=== PATIENT | female | born 1965 | race Caucasian/White ===

== ENCOUNTER 2016-07-09 12:48 | Emergency (ER) | payer OTHER ==
[2016-07-09 12:53] VITALS: BP 193/99; PULSE 118; TEMP 98.4; BMI 50.7
--- NOTE | 2016-07-09 13:26 | PDOC ---
History of Present Illness - General Chief Complaint: Abscess Boil Stated Complaint: LT LEG ABSCESS Time Seen by Provider: 07/09/16 12:55 History Source: Patient Exam Limitations: No Limitations - History of Present Illness Initial Comments: 07/09/16 13:18 CC chronic lower back for months; had recent surgery of this year for same ; unable to fill percocet meds, ran out due to over use; ; no new recent symptoms, just constant burn, no fever; seen by surgeon last week Past History - Past Medical History Allergies/Adverse Reactions: Allergies Allergy/AdvReac Type Severity Reaction Status Date / Time No Known Allergies Allergy Verified 07/09/16 12:53 Home Medications: Ambulatory Orders Simvastatin [Zocor -] 40 mg PO HS 08/26/12 Enalapril Maleate [Vasotec -] 20 mg PO DAILY 12/06/12 Acetaminophen [Tylenol .Regular Strength -] 650 mg PO Q6H PRN #0 tablet Docusate Sodium [Colace -] 200 mg PO HS #0 capsule 12/10/12 Insulin (Levemir) [Levemir Flexpen -] 25 units SQ BIDAC #0 pen 12/10/12 Metformin HCl [Glucophage -] 500 mg PO BIDAC #0 tablet 12/10/12 Nifedipine ER [Procardia XL -] 30 mg PO DAILY #0 tab.er.24 12/10/12 Oxycodone HCl/Acetaminophen [Percocet 5-325 mg Tablet] 1 combo PO Q6H PRN #0 tablet 12/10/12 Sitagliptin Phosphate [Januvia -] 100 mg PO DAILY@0700 #0 ud 12/10/12 Cephalexin Monohydrate [Keflex -] 500 mg PO Q6H #28 capsule 03/28/13 Clindamycin [Cleocin -] 300 mg PO Q6HPO #28 capsule 03/01/14 Chlorhexidine Gluconate [Hibiclens For Decolonization -] 1 applic TP DAILY #1 bottle 04/02/15 Diabetes: Yes HTN: Yes Hypercholesterolemia: Yes - Psycho/Social/Smoking Cessation Hx Anxiety: No Suicidal Ideation: No Smoking Status: No Smoking History: Never smoked Have you smoked in the past 12 months: No Number of Cigarettes Smoked Daily: 0 Hx Alcohol Use: No Drug/Substance Use Hx: No Substance Use Type: None Hx Substance Use Treatment: No Review of Systems - Review of Systems Constitutional: No: Chills, Fever, Malaise HEENTM: Yes: Symptoms Reported Respiratory: No: Cough Cardiac (ROS): No: Symptoms Reported ABD/GI: Yes: Nausea. No: Constipated, Vomiting : No: Symptoms Reported, Burning, Dysuria Musculoskeletal: Yes: Back Pain, Muscle Pain Integumentary: No: Symptoms Reported Neurological: No: Numbness, Paresthesia, Tingling Hematologic/Lymphatic: No: Symptoms Reported *Physical Exam - Vital Signs Last Vital Signs Temp Pulse Resp BP Pulse Ox 98.4 F 118 H 20 193/99 97 07/09/16 12:49 07/09/16 12:49 07/09/16 12:49 07/09/16 12:49 07/09/16 12:49 - Physical Exam General Appearance: Yes: Appropriately Dressed HEENT: positive: Pharynx Normal. negative: TMs Normal Neck: positive: Supple. negative: Tender, Rigid Respiratory/Chest: positive: Lungs Clear. negative: Chest Tender, Respiratory Distress, Accessory Muscle Use Gastrointestinal/Abdominal: positive: Tender, Soft. negative: Flat Integumentary: positive: Normal Color, Dry, Warm, Other (surgical suture line healing well, no sutures now) Medical Decision Making - Medical Decision Making 07/09/16 13:22 had case management see pt, please see her note; gave percocet x 2 doses in ED also gave xanax for anxiety; pt has seen Dr roman pain management in past; piano case maker will call pt on monday to review status and possible alternatives care plans; will treat with tramadol and short course xanax at home; and follow up with LMD monday at [facility] 07/09/16 13:26 *DC/Admit/Observation/Transfer Diagnosis at time of Disposition: Chronic back pain Qualifiers: Back pain location: low back pain Back pain laterality: unspecified Sciatica presence: with sciatica Sciatica laterality: bilateral sciatica Qualified Code(s ): M54.41 - Lumbago with sciatica, right side; M54.42 - Lumbago with sciatica, left side; G89.29 - Other chronic pain - Discharge Dispostion Disposition: HOME Condition at time of disposition: Stable Admit: No - Referrals Referrals: Anjelica Ramirez [Primary Care Provider] - - Patient Instructions Additional Instructions: please follow up with local MD at [facility] on monday as discussed; - Post Discharge Activity
[2016-07-09] MEDS ORDERED: INSULIN REGULAR HUMAN 100 UNITS/ML *VIAL SQ ONE (14:23)
--- NOTE | 2016-07-09 14:36 | PDOC ---
History of Present Illness - General Chief Complaint: Abscess Boil Stated Complaint: LT LEG ABSCESS Time Seen by Provider: 07/09/16 12:55 History Source: Patient Exam Limitations: No Limitations - History of Present Illness Initial Comments: 07/09/16 14:31 CC abscess to left posterior thigh Timing/Duration: 1 week Severity: mild Associated Symptoms: denies: chest pain, cough, fever/chills Past History - Past Medical History Allergies/Adverse Reactions: Allergies Allergy/AdvReac Type Severity Reaction Status Date / Time No Known Allergies Allergy Verified 07/09/16 12:53 Home Medications: Ambulatory Orders Simvastatin [Zocor -] 40 mg PO HS 08/26/12 Enalapril Maleate [Vasotec -] 20 mg PO DAILY 12/06/12 Acetaminophen [Tylenol .Regular Strength -] 650 mg PO Q6H PRN #0 tablet Insulin (Levemir) [Levemir Flexpen -] 25 units SQ BIDAC #0 pen 12/10/12 Metformin HCl [Glucophage -] 500 mg PO BIDAC #0 tablet 12/10/12 Nifedipine ER [Procardia XL -] 30 mg PO DAILY #0 tab.er.24 12/10/12 Oxycodone HCl/Acetaminophen [Percocet 5-325 mg Tablet] 1 combo PO Q6H PRN #0 tablet 12/10/12 Chlorhexidine Gluconate [Hibiclens For Decolonization -] 1 applic TP DAILY #1 bottle 04/02/15 Sulfamethoxazole/Trimethoprim [Bactrim Ds -] 1 tab PO DAILY 07/09/16 Diabetes: Yes HTN: Yes Hypercholesterolemia: Yes - Psycho/Social/Smoking Cessation Hx Anxiety: No Suicidal Ideation: No Smoking Status: No Smoking History: Never smoked Have you smoked in the past 12 months: No Number of Cigarettes Smoked Daily: 0 Hx Alcohol Use: No Drug/Substance Use Hx: No Substance Use Type: None Hx Substance Use Treatment: No Review of Systems - Review of Systems Constitutional: Yes: Symptoms Reported. No: Chills, Fever, Malaise HEENTM: No: Symptoms Reported Respiratory: No: Symptoms reported, Cough Cardiac (ROS): No: Symptoms Reported Integumentary: Yes: Other (10 cm erythemic area with fluct, center area) *Physical Exam - Vital Signs Last Vital Signs Temp Pulse Resp BP Pulse Ox 98.4 F 118 H 20 193/99 97 07/09/16 12:49 07/09/16 12:49 07/09/16 12:49 07/09/16 12:49 07/09/16 12:49 - Physical Exam General Appearance: Yes: Appropriately Dressed. No: Apparent Distress HEENT: positive: TMs Normal, Pharynx Normal Respiratory/Chest: positive: Lungs Clear. negative: Accessory Muscle Use Integumentary: positive: Other (left upper posterior thigh 10 cm erythemica area with fluct center) Procedures - Incision and Drainage I&D Site: Left: Leg Betadine cleansed: Yes Anesthesia: 1% Lidocaine Volume(ml): 5 Blade Size: 11 Iodinated Packin/4 in Plain Packing: Yes Complications: none Dressing: Yes Medical Decision Making - Medical Decision Making 07/09/16 14:35 GFSG= [id number]; I&D of abscess left thigh; has been on bactrim x 5 days ; wc in 2 days *DC/Admit/Observation/Transfer Diagnosis at time of Disposition: Abscess of lower extremity Chronic back pain Qualifiers: Back pain location: low back pain Back pain laterality: unspecified Sciatica presence: with sciatica Sciatica laterality: bilateral sciatica Qualified Code(s ): M54.41 - Lumbago with sciatica, right side; M54.42 - Lumbago with sciatica, left side; G89.29 - Other chronic pain Hyperglycemia due to type 2 diabetes mellitus Qualifiers: Diabetes mellitus retirement insulin use: unspecified retirement insulin use status Qualified Code(s): E11.65 - Type 2 diabetes mellitus with hyperglycemia - Discharge Dispostion Disposition: HOME Condition at time of disposition: Stable Admit: No - Referrals Referrals: Anjelica Ramirez [Primary Care Provider] - - Patient Instructions Additional Instructions: please return to ED in 2 days for packing removal; please follow sugar at home - Post Discharge Activity
[2016-07-09] MEDS ORDERED: INSULIN (NOVOLOG) ASPART 100 UNITS/ML 10ML VIAL SQ ONE (14:43)
[2016-07-09] MEDS ORDERED: INSULIN (NOVOLOG) ASPART 100 UNITS/ML 10ML VIAL ONE (14:48)
== END 2016-07-09 15:35 | disposition home or self-care (01) ==
LOC: JERFT 12:48
PROC: 3E013VG Introduction of Insulin into Subcutaneous Tissue, Percutaneous Approach (ICD-10-PCS; principal; 2016-07-09)
PROC: 3E013VG Introduction of Insulin into Subcutaneous Tissue, Percutaneous Approach (ICD-10-PCS; 2016-07-09)
PROC: 0J9M3ZZ Drainage of Left Upper Leg Subcutaneous Tissue and Fascia, Percutaneous Approach (ICD-10-PCS; 2016-07-09)
DX: L02.416 Cutaneous abscess of left lower limb (principal); M54.41 Lumbago with sciatica, right side; M54.42 Lumbago with sciatica, left side; E11.65 Type 2 diabetes mellitus with hyperglycemia; Z79.4 Long term (current) use of insulin; Z79.84 Long term (current) use of oral hypoglycemic drugs; I10 Essential (primary) hypertension; E78.00 Pure hypercholesterolemia, unspecified
CPT/HCPCS: 87070; 87186; 87205; 99281-25

== ENCOUNTER 2016-07-11 10:19 | Emergency (ER) | payer OTHER ==
[2016-07-11 10:37] VITALS: BP 170/80; PULSE 102; TEMP 97.9; BMI 51.6
--- NOTE | 2016-07-11 13:19 | PDOC ---
*Physical Exam - Vital Signs Last Vital Signs Temp Pulse Resp BP Pulse Ox 97.9 F 102 H 19 170/80 98 07/11/16 10:31 07/11/16 10:31 07/11/16 10:31 07/11/16 10:31 07/11/16 10:31 - Physical Exam Neck: negative: Rigid Respiratory/Chest: positive: Lungs Clear Integumentary: positive: Other (no drainage still somewhat indurated; redness gone now) Medical Decision Making - Medical Decision Making 07/11/16 13:[address] Crow *DC/Admit/Observation/Transfer Diagnosis at time of Disposition: Admission for wound check of abscess - Discharge Dispostion Disposition: HOME Condition at time of disposition: Stable Admit: No - Referrals Referrals: Anjelica Ramirez [Primary Care Provider] - Tray Crow MD [Staff Physician] - - Patient Instructions Additional Instructions: see dr crow 1 week for wound evaluation; finish abx - Post Discharge Activity Work/School Note: Back to Work
== END 2016-07-11 13:52 | disposition home or self-care (01) ==
LOC: JERFT 10:19
DX: Z09 Encounter for follow-up examination after completed treatment for conditions other than malignant neoplasm (principal)
CPT/HCPCS: 99281-25

== ENCOUNTER 2017-01-14 12:53 | Inpatient (IN) | payer OTHER ==
--- NOTE | 2017-01-14 13:37 | PDOC ---
*Physical Exam - Vital Signs Last Vital Signs Temp Pulse Resp BP Pulse Ox 97.8 F 109 H 19 166/81 97 01/14/17 13:01 01/14/17 13:01 01/14/17 13:01 01/14/17 13:01 01/14/17 13:01
[2017-01-14 13:52] LABS: BASOPHIL 1.2 % (0-2.0); EOSINOPHIL 7.4 % (0-4.5); MCH 28.3 pg (25.7-33.7); MCHC 32.4 g/dl (32.0-36.0); MEAN CELL VOLUME 87.2 fl (80-96); MEAN PLT VOLUME 7.2 fl (7.5-11.1); NEUTROPHILS 68.2 % (42.8-82.8); PLATELET COUNT 432 K/MM3 (134-434); RDW 14.1 % (11.6-15.6); WHITE BLOOD COUNT 9.9 K/mm3 (4.0-10.0)
--- NOTE | 2017-01-14 13:57 | PDOC ---
History of Present Illness - General History Source: Patient - History of Present Illness Timing/Duration: other Associated Symptoms: reports: weakness <Bella NickAngelique - Last Filed: 01/14/17 15:22> <Nelly Harperan - Last Filed: 01/14/17 15:41> - General Chief Complaint: Weakness Stated Complaint: LEG WEAKNESS Time Seen by Provider: 01/14/17 13:09 Past History - Past Medical History Diabetes: Yes HTN: Yes Hypercholesterolemia: Yes - Psycho/Social/Smoking Cessation Hx Anxiety: No Suicidal Ideation: No Smoking Status: No Smoking History: Never smoked Have you smoked in the past 12 months: No Number of Cigarettes Smoked Daily: 0 Hx Alcohol Use: No Drug/Substance Use Hx: No Substance Use Type: None Hx Substance Use Treatment: No <LatvianJudith - Last Filed: 01/14/17 15:22> <LeroyHector - Last Filed: 01/14/17 15:41> - Past Medical History Allergies/Adverse Reactions: Allergies Allergy/AdvReac Type Severity Reaction Status Date / Time No Known Allergies Allergy Verified 01/14/17 13:01 Home Medications: Ambulatory Orders Simvastatin [Zocor -] 40 mg PO HS 08/26/12 Enalapril Maleate [Vasotec -] 20 mg PO DAILY 12/06/12 Acetaminophen [Tylenol .Regular Strength -] 650 mg PO Q6H PRN #0 tablet Insulin (Levemir) [Levemir Flexpen -] 25 units SQ BIDAC #0 pen 12/10/12 Metformin HCl [Glucophage -] 500 mg PO BIDAC #0 tablet 12/10/12 Nifedipine ER [Procardia XL -] 30 mg PO DAILY #0 tab.er.24 12/10/12 Oxycodone HCl/Acetaminophen [Percocet 5-325 mg Tablet] 1 combo PO Q6H PRN #0 tablet 12/10/12 Chlorhexidine Gluconate [Hibiclens For Decolonization -] 1 applic TP DAILY #1 bottle 04/02/15 Sulfamethoxazole/Trimethoprim [Bactrim Ds -] 1 tab PO DAILY 07/09/16 Review of Systems - Review of Systems Constitutional: No: Chills, Fever Respiratory: No: Shortness of Breath Cardiac (ROS): No: Chest Pain ABD/GI: No: Nausea, Vomiting Musculoskeletal: Yes: Muscle Weakness. No: Back Pain, Joint Swelling, Neck Pain Neurological: Yes: Weakness. No: Numbness, Tingling <Bella NickAngelique - Last Filed: 01/14/17 15:22> *Physical Exam - Vital Signs Last Vital Signs Temp Pulse Resp BP Pulse Ox 97.8 F 109 H 19 166/81 97 01/14/17 13:01 01/14/17 13:01 01/14/17 13:01 01/14/17 13:01 01/14/17 13:01 - Physical Exam General Appearance: Yes: Appropriately Dressed. No: Apparent Distress HEENT: positive: Normal Voice Neck: positive: Supple Respiratory/Chest: negative: Respiratory Distress Female Pelvic Exam: positive: other (well appearing abscess to L groin, no e/o reaccumulation or erythema) Gastrointestinal/Abdominal: positive: Soft. negative: Tender Musculoskeletal: positive: Normal Inspection Extremity: positive: Normal Inspection Integumentary: positive: Dry, Warm. negative: Rash Neurologic: positive: Fully Oriented, Alert, Normal Mood/Affect, Motor Strength 5/5 <LatvianJudith - Last Filed: 01/14/17 15:22> - Vital Signs Last Vital Signs Temp Pulse Resp BP Pulse Ox 97.8 F 100 H 18 172/78 98 01/14/17 13:01 01/14/17 15:25 01/14/17 15:25 01/14/17 15:25 01/14/17 15:25 <Hector Harper - Last Filed: 01/14/17 15:41> Heart Score/ECG Review - ECG Intrepretation Comment:: 01/14/17 15:20 Sinus tachy to 102 BPM w/ significantly peaked Ts <LatvianJudith - Last Filed: 01/14/17 15:22> ED Treatment Course - LABORATORY CBC & Chemistry Diagram: 01/14/17 13:45 01/14/17 13:45 <LatvianJudith - Last Filed: 01/14/17 15:22> - LABORATORY CBC & Chemistry Diagram: 01/14/17 13:45 01/14/17 13:45 - ADDITIONAL ORDERS Additional order review: Laboratory Results 01/14/17 01/14/17 01/14/17 14:20 13:45 13:45 Sodium 130 L Potassium 8.2 H* D Chloride 105 Carbon Dioxide 22 Anion Gap 3 L BUN 46 H D Creatinine 1.6 H D Creat Clearance w eGFR 33.85 Random Glucose 285 H Calcium 9.1 Total Bilirubin < 0.1 L D AST 14 L D ALT 28 D Alkaline Phosphatase 97 B-Natriuretic Peptide 25.79 Total Protein 8.1 Albumin 3.5 Urine Color Straw Urine Appearance Slcloudy Urine pH 5.0 Urine Protein 2+ H Urine Glucose (UA) 3+ H Urine Ketones Negative Urine Blood 1+ H Urine Nitrite Negative Urine Bilirubin Negative Urine Urobilinogen Negative Ur Leukocyte Esterase Negative 01/14/17 13:45 RBC 4.05 MCV 87.2 MCHC 32.4 RDW 14.1 MPV 7.2 L Neutrophils % 68.2 Lymphocytes % 17.1 Monocytes % 6.1 Eosinophils % 7.4 H D Basophils % 1.2 - Medications Given in the ED: ED Medications Discontinued Medications Generic Name Dose Route Start Last Admin Trade Name Alma Rosa PRN Reason Stop Dose Admin Albuterol Sulfate 1 amp 01/14/17 14:57 01/14/17 15:34 Ventolin 0.083% Nebulizer Soln - NEB 01/14/17 14:58 1 amp ONCE ONE Administration Dextrose 50 gm 01/14/17 14:56 01/14/17 15:34 D50w (Vial) - IVPUSH 01/14/17 14:57 50 gm NOW ONE Administration Insulin Human Regular 10 units 01/14/17 14:54 01/14/17 15:34 Novolin R Vial *For Ivpush Or Iv Drip Only* IVPUSH 01/14/17 14:55 10 units ONCE ONE Administration Sodium Polystyrene Sulfonate 30 gm 01/14/17 14:52 01/14/17 15:34 Kayexalate - PO 01/14/17 14:53 30 gm ONCE ONE Administration <Hector Harper - Last Filed: 01/14/17 15:41> Medical Decision Making - Medical Decision Making 01/14/17 13:51 51-year-old morbidly obese, hypertension, hyperlipidemia, diabetes, recently completed bactrim for groin abscess (improving per pt), presenting with complaint of bilateral lower extremity weakness. Patient states for the past several weeks she has been experiencing bilateral lower extremity weakness usually after sitting for too long. At that point, pt states she then has a difficult time getting up and walking. States at some point, weakness usually resolves. This a.m. while sitting at [employer], symptoms got worse and states she was not even able to stand up and walk to put her tray back on counter initially but at some point, was able to ambulate. Patient does have a history of sciatica, but denies any back pain at this time. No saddle anesthesia or bladder or bladder incontinence. When patient asked if she has seen her primary doctor regarding symptoms, pt responds that she has not been able to as she is unable to afford the co-pay. At this point, patient starts to cry and states "My life is falling apart". Denies any SI. See exam Intermittent b/l LE weakness of unclear etiology x weeks Stable w intact LE strength b/l and ambulating in ED No acute back pain to suggest cauda equina -will check basic labs r/o electrolyte ab/nl -anticipate discharge w/ PMD f/u for further eval -possible neuro referral 01/14/17 13:59 01/14/17 14:50 01/14/17 15:02 Cr 1.6 (new for pt) w/ K of 8.2! (ran multiple times and not hemolyzed per lab staff) EKG w/ significantly peaked Ts. HyperK cocktail in progress. Will contact Dr Ramirez and admit 01/14/17 15:04 01/14/17 15:09 Case d/w pt's PMD, Dr Ramirez, who states to admit to hospitalist 01/14/17 15:12 01/14/17 15:19 Hospitalist aware and wants pt to go to inpt tele. Recommends drawing trops 01/14/17 15:22 <Judith Nick - Last Filed: 01/14/17 15:22> *DC/Admit/Observation/Transfer - Discharge Dispostion Admit: Yes <Judith Nick Filed: 01/14/17 15:22> - Attestations Physician Attestion: 01/14/17 15:39 I, Dr. Hector Harper MD, attest that this document has been prepared under my direction and personally reviewed by me in its entirety. I further attest, that it accurately reflects all work, treatment, procedures and medical decision -making performed by me. <Hector Harper - Last Filed: 01/14/17 15:41> Diagnosis at time of Disposition: MACY (acute kidney injury), Hyperkalemia - Discharge Dispostion Condition at time of disposition: Fair - Referrals
[2017-01-14 14:31] LABS: ALBUMIN 3.5 g/dl (3.4-5.0); ALK PHOS 97 U/L (45-117); ANION GAP 3 (8-16); CALCIUM 9.1 mg/dL (8.5-10.1); CO2 22 mmol/L (21-32); CREATININE 1.6 mg/dL (0.55-1.02); GLUCOSE,RANDOM 285 mg/dL (74-106); SGOT/AST 14 U/L (15-37); SGPT/ALT 28 U/L (12-78); TOT PROT 8.1 g/dl (6.4-8.2)
--- NOTE | 2017-01-14 14:31 | PDOC ---
*Physical Exam - Vital Signs Last Vital Signs Temp Pulse Resp BP Pulse Ox 97.8 F 109 H 19 166/81 97 01/14/17 13:01 01/14/17 13:01 01/14/17 13:01 01/14/17 13:01 01/14/17 13:01 - Physical Exam General Appearance: Yes: Nourished, Appropriately Dressed HEENT: positive: EOMI, ELI Respiratory/Chest: positive: Lungs Clear, Normal Breath Sounds. negative: Respiratory Distress Cardiovascular: positive: Regular Rhythm, Regular Rate Vascular Pulses: Dorsalis-Pedis (R): 2+, Doralis-Pedis (L): 2+ Gastrointestinal/Abdominal: positive: Normal Bowel Sounds, Soft. negative: Tender Extremity: positive: Normal Capillary Refill Integumentary: positive: Normal Color Neurologic: positive: data miner II-XII NML intact, Motor Strength 5/5 ED Treatment Course - LABORATORY CBC & Chemistry Diagram: 01/14/17 13:45 01/14/17 13:45 - ADDITIONAL ORDERS Additional order review: 01/14/17 13:45 RBC 4.05 MCV 87.2 MCHC 32.4 RDW 14.1 MPV 7.2 L Neutrophils % 68.2 Lymphocytes % 17.1 Monocytes % 6.1 Eosinophils % 7.4 H D Basophils % 1.2 Medical Decision Making - Medical Decision Making Agree with PA's evaluation, assessment, and plan. 01/14/17 15:08 51 F morbidly obese, DM, HTN, HLD presents with BLE weakness for several weeks, acutely worsening today. Pt found to be in new renal failure with K 8.2 and bump in Cr to 1.6. No focal neuro deficits on exam to suggest intracranial process, pt able to ambulate without assistance. Weakness likely 2/2 metabolic derangement. - IVF, Hyper-K cocktail - EKG - Admit for fluid resuscitation and further work up of new renal insufficiency *DC/Admit/Observation/Transfer Diagnosis at time of Disposition: MACY (acute kidney injury), Hyperkalemia - Referrals Referrals: Anjelica Ramirez [Primary Care Provider] - - Attestations Physician Attestion: 01/14/17 15:12 I, Dr. Hector Harper MD, attest that this document has been prepared under my direction and personally reviewed by me in its entirety. I further attest, that it accurately reflects all work, treatment, procedures and medical decision -making performed by me.
[2017-01-14 14:41] LABS: URINE APPEARANCE SLCLOUDY; URINE BILIRUBIN NEGATIVE (NEGATIVE); URINE BLOOD 1+ (NEGATIVE); URINE COLOR STRAW; URINE GLUCOSE (UA) 3+ (NEGATIVE); URINE KETONE NEGATIVE (NEGATIVE); URINE LEUK ESTERASE NEGATIVE (NEGATIVE); URINE NITRITE NEGATIVE (NEGATIVE); URINE UROBILINOGEN NEGATIVE mg/dL (0.2-1.0)
[2017-01-14 14:49] LABS: BILIRUBIN,TOTAL < 0.1 mg/dL (0.2-1.0)
[2017-01-14 14:51] LABS: URINE PROTEIN 2+ (NEGATIVE)
[2017-01-14] MEDS ORDERED: SODIUM POLYSTYRENE SULFONATE 15 GM/60 ML BOTTLE PO ONE ×2 (14:52→23:57)
[2017-01-14] MEDS ORDERED: CALCIUM GLUCONATE 10% - 1,000 MG/10 ML VIAL IVPUSH ONE (14:53)
[2017-01-14] MEDS ORDERED: INSULIN REGULAR HUMAN 100 UNITS/ML *VIAL IVPUSH ONE ×2 (14:54→18:55)
[2017-01-14] MEDS ORDERED: DEXTROSE 50%-WATER - 25 GM/50 ML VIAL IVPUSH ONE ×2 (14:56→18:55)
[2017-01-14] MEDS ORDERED: ALBUTEROL SO4 0.083% IH SOL 2.5 MG/3 ML VIAL.NEB. NEB ONE ×4 (14:57→19:12)
[2017-01-14] MEDS ORDERED: SODIUM CHLORIDE 1,000 ML IV STA ×2 (15:01→16:45)
[2017-01-14] MEDS ORDERED: INSULIN REGULAR HUMAN 100 UNITS/ML *VIAL ONE ×2 (15:12→19:12)
[2017-01-14] MEDS ORDERED: SODIUM POLYSTYRENE SULFONATE 15 GM/60 ML BOTTLE ONE (15:12)
[2017-01-14] MEDS ORDERED: DEXTROSE 50%-WATER 50 ML DISP.SYRIN ONE ×2 (15:12→19:12)
[2017-01-14] MEDS ORDERED: CALCIUM GLUCONATE 10% - 1,000 MG/10 ML VIAL ONE (15:48)
--- NOTE | 2017-01-14 16:08 | HP ---
Admitting History and Physical - Primary Care Physician PCP: Anjelica Ramirez - Admission Chief Complaint: lower extremity weakness History of Present Illness: HPI: This is a 52 year old female with pmhx of DM II, HTN, HLD presented to the ED with worsening lower extremity weakness. For the past week she reports lower extremity weakness by which she felt her legs giving out under her and weak upon standing, only with ambulation would the weakness dissipate and she would feel strong. Today while at breakfast at [employer], when she went to stand she was so weak she needed to use her mothers cane. The weakness improved with walking once again, but her mother insisted she go to the hospital. While in the ED she was found to be hyperkalemic with EKG changes (peaked T waves). Pt states shes been on bactrim for a boil in her left labia majora that opened and started draining on its on own. Her mother has been keeping the wound clean and dressed since. ED course: 1. Hyperkalemic cocktail 2. Kayexalate 30mg x1 3. EKG peaked T waves 4. 1L bolus x1 History Source: Patient Limitations to Obtaining History: No Limitations - Past Medical History Cardiovascular: Yes: HTN, Hyperlipdemia ...LMP: 12/01/12 ENT: Yes: Other (L eye retinal detachment) Endocrine: Yes: Diabetes Mellitus - Past Surgical History Additional Past Surgical History: ovarian cyst removal "years ago" Lanced skin boils/abscess - Smoking History Smoking history: Never smoked Have you smoked in the past 12 months: No Aproximately how many cigarettes per day: 0 - Alcohol/Substance Use Hx Alcohol Use: No History of Substance Use: reports: None - Social History Usual Living Arrangement: Yes: With Parent ADL: Independent 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 History of Recent Travel: No Home Medications - Allergies Allergies/Adverse Reactions: Allergies Allergy/AdvReac Type Severity Reaction Status Date / Time No Known Allergies Allergy Verified 01/14/17 13:01 - Home Medications Home Medications: Ambulatory Orders Simvastatin [Zocor -] 40 mg PO HS 08/26/12 Enalapril Maleate [Vasotec -] 20 mg PO DAILY 12/06/12 Acetaminophen [Tylenol .Regular Strength -] 650 mg PO Q6H PRN #0 tablet 07/01/ 13 Hydrochlorothiazide [Hctz -] 12.5 mg PO DAILY 01/14/17 Insulin NPH Human Isophane [Humulin N] 30 unit SQ AM 01/14/17 Insulin NPH Human Isophane [Humulin N] 30 unit SQ HS 01/14/17 Metformin HCl [Glucophage -] 1,000 mg PO BIDAC 01/14/17 Review of Systems - Review of Systems Constitutional: reports: Weakness Eyes: reports: No Symptoms HENT: reports: No Symptoms Neck: reports: No Symptoms Cardiovascular: reports: No Symptoms Respiratory: reports: No Symptoms Gastrointestinal: reports: No Symptoms Musculoskeletal: reports: Muscle Weakness Integumentary: reports: Wound (labia majora) Neurological: reports: Unsteady Gait Endocrine: reports: No Symptoms Hematology/Lymphatic: reports: No Symptoms Psychiatric: reports: No Symptoms Physical Examination Vital Signs: Vital Signs Temperature 97.8 F 01/14/17 13:01 Pulse Rate 100 H 01/14/17 15:25 Respiratory Rate 18 01/14/17 15:25 Blood Pressure 172/78 01/14/17 15:25 O2 Sat by Pulse Oximetry (%) 98 01/14/17 15:25 Constitutional: Yes: Anxious Eyes: Yes: Conjunctiva Clear HENT: Yes: Other (poor dentition) Cardiovascular: Yes: Regular Rate and Rhythm, S1 Respiratory: Yes: Regular, CTA Bilaterally Gastrointestinal: Yes: Normal Bowel Sounds, Soft Renal/: Yes: Other (Left labia majora open wound, clean, non draining, pink) Musculoskeletal: Yes: Muscle Weakness Edema: Yes Edema: LLE: 2+, RLE: 2+ Integumentary: Yes: Other (R toe healing wound, wound closed) Wound/Incision: Yes: Open to air (vagina) Neurological: Yes: Alert, Oriented, Cran Nerves II-XII Intact Psychiatric: Yes: Alert, Oriented Labs: CBC, BMP 01/14/17 13:45 01/14/17 13:45 Imaging - Results EKG: Report Reviewed, Image Reviewed (Peaked T waves) Problem List - Problems (1) MACY (acute kidney injury) Code(s): N17.9 - ACUTE KIDNEY FAILURE, UNSPECIFIED (2) Hyperkalemia Code(s): E87.5 - HYPERKALEMIA (3) Hyperglycemia due to type 2 diabetes mellitus Code(s): E11.65 - TYPE 2 DIABETES MELLITUS WITH HYPERGLYCEMIA Qualifiers: Diabetes mellitus 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 Hyperkalemia - Cocktail in ED - Repeat BMP in 2 hours (1700) - Repeat cocktail in 4hr if K not improved - Monitor on telemetry , EKG in AM - Continue IVF - Stop HCTZ - Stop Bactrim 2. Hyponatremia - Corrected sodium 133 - Likely due to HCTZ 3. Eosinophilia - Stop bactrim - Collect urine eosinophilia 4. HTN - Hold CARRIE - Stop HCTZ - Start Hydralazine 10mg TID 5. MACY/new onset ARF - 1L NS given - Give additional 1L bolus - Continue NS 83cc/hr after - Kidney/bladder US - Check CXR - Insert will - Urine studies - UA - Renal consulted 5. HLD - Hold statin for now - Check lipid panel 6. DM II - Levemir 30units BID - ISS, BGM ACHS - Check a1c 7. DVT ppx - heparin 5000sq q8 Visit type - Emergency Visit Emergency Visit: Yes ED Registration Date: 01/14/17 Care time: The patient presented to the Emergency Department on the above date and was hospitalized for further evaluation of their emergent condition. - New Patient This patient is new to me today: Yes Date on this admission: 01/14/17 - Critical Care Critical Care patient: No
[2017-01-14 16:16] LABS: TROPONIN I 0.02 ng/ml (0.00-0.05)
[2017-01-14] MEDS ORDERED: LORazepam 0.5 MG TABLET PO PRN (16:52)
[2017-01-14] MEDS: hydrALAZINE HCL 10 MG TABLET PO SCH ×2 (17:53→22:33)
[2017-01-14 18:13] LABS: ANION GAP 6 (8-16); CALCIUM 9.4 mg/dL (8.5-10.1); CO2 23 mmol/L (21-32); CREATININE 1.6 mg/dL (0.55-1.02); GLUCOSE,RANDOM 241 mg/dL (74-106)
[2017-01-14] MEDS ORDERED: SODIUM CHLORIDE 1,000 ML IV SCH (18:45)
[2017-01-14] MEDS ORDERED: INSULIN (NOVOLOG) ASPART 100 UNITS/ML 10ML VIAL ONE (22:18)
[2017-01-14] MEDS: HEPARIN NA (PORCINE) 5,000 UNITS/ML 1ML VIAL SQ SCH (22:33)
[2017-01-14] MEDS: INSULIN SLIDING SCALE (NOVOLOG) 1 VIAL SQ SCH (22:33)
[2017-01-14 22:58] LABS: ANION GAP 9 (8-16); CALCIUM 8.3 mg/dL (8.5-10.1); CO2 20 mmol/L (21-32); CREATININE 1.5 mg/dL (0.55-1.02); GLUCOSE,RANDOM 268 mg/dL (74-106)
[2017-01-15 01:02] VITALS: BMI 51.7
[2017-01-15 04:17] LABS: ANION GAP 6 (8-16); CALCIUM 8.1 mg/dL (8.5-10.1); CO2 21 mmol/L (21-32); CREATININE 1.7 mg/dL (0.55-1.02); GLUCOSE,RANDOM 293 mg/dL (74-106)
[2017-01-15] MEDS ORDERED: DEXTROSE 50%-WATER - 25 GM/50 ML VIAL IVPUSH ONE ×3 (04:34→19:38)
[2017-01-15] MEDS ORDERED: INSULIN REGULAR HUMAN 100 UNITS/ML *VIAL IVPUSH ONE ×2 (04:35→19:38)
[2017-01-15] MEDS ORDERED: ALBUTEROL SO4 0.083% IH SOL 2.5 MG/3 ML VIAL.NEB. NEB ONE (04:36)
[2017-01-15] MEDS ORDERED: CALCIUM GLUCONATE 10% - 1,000 MG/10 ML VIAL IVPUSH ONE ×2 (05:09→19:40)
[2017-01-15] MEDS ORDERED: DEXTROSE 50%-WATER - 25 GM/50 ML VIAL ONE (05:27)
--- NOTE | 2017-01-15 05:31 | HOSP ---
Subjective - Review of Symptoms Events since last encounter: Hospitalist Encounter Notified by RN of the critical lab value K 6.7 after receiving D-50 x2, Novolog 10 units x2, Calcium Gluconate 1000mg x1, Kayexelate 30gm x2 yesterday afternoon and evening. Ordered stat EKG, Hyperkalemic Protocol Arrived to bedside, patient is awake, alert and oriented, denies CP, SOB. EKG reviewed- peaked T waves noted in pericordial leads Will repeat BMP in 2 hrs. Physical Examination Vital Signs: Vital Signs Temperature 98.4 F 01/15/17 02:00 Pulse Rate 99 H 01/15/17 02:00 Respiratory Rate 16 01/15/17 02:00 Blood Pressure 131/69 01/15/17 02:00 O2 Sat by Pulse Oximetry (%) 100 01/14/17 21:00 Constitutional: Yes: Well Nourished, Anxious, Obese Cardiovascular: Yes: WNL, Regular Rate and Rhythm, S1, S2 Respiratory: Yes: WNL, Regular, CTA Bilaterally ...Motor Strength: WNL Psychiatric: Yes: WNL, Alert, Oriented Labs: CBC, BMP 01/15/17 02:40 Current Medications Generic Name Dose Route Start Last Admin Trade Name Freq PRN Reason Stop Dose Admin Acetaminophen 650 mg 01/14/17 16:52 Tylenol - PO Q6H PRN FEVER OR PAIN Heparin Sodium (Porcine) 5,000 unit 01/14/17 22:00 01/14/17 22:33 Heparin - SQ 5,000 unit TID ELISEO Administration Hydralazine HCl 10 mg 01/14/17 17:00 01/14/17 22:33 Apresoline - PO 10 mg TID ELISEO Administration Sodium Chloride 1,000 mls @ 83 mls/hr 01/14/17 18:45 01/14/17 19:53 Normal Saline - IV 83 mls/hr ASDIR ELISEO Administration Insulin Aspart 1 vial 01/14/17 22:00 01/14/17 22:33 Novolog Vial Sliding Scale - SQ 6 units ACHS ELISEO Administration Protocol Lorazepam 0.5 mg 01/14/17 16:52 Ativan - PO BID PRN ANXIETY Intake & Output 01/12/17 01/13/17 01/14/17 01/15/17 23:59 23:59 23:59 23:59 Output Total 400 Balance -400 Weight 145.331 kg
[2017-01-15] MEDS: HEPARIN NA (PORCINE) 5,000 UNITS/ML 1ML VIAL SQ SCH ×3 (06:48→21:55)
[2017-01-15] MEDS: INSULIN SLIDING SCALE (NOVOLOG) 1 VIAL SQ SCH ×4 (06:49→21:55)
[2017-01-15] MEDS: hydrALAZINE HCL 10 MG TABLET PO SCH ×3 (06:49→21:55)
--- NOTE | 2017-01-15 08:05 | CON.NEP ---
Consult Consult Specialty:: Nephrology ([facility]) Referred by:: CYNDY Coelho Reason for Consultation:: Hyperkalemia/MACY - History of Present Illness Chief Complaint: Lower Ext weakness History of Present Illness: This is a 51 year old woman with PMhx of DM Type 2 (x 20 years), Hypertension, Obesity who presented with complaints of Lower extremity weakness x 2 days and found to have hyperkaemia with K of 8.2 and BUN/Cr of 46/1.6. Pt reports being on Bactrim for 2 weeks for boil. Reports poor oral intake during that time. Pt was on Losartan/HCTZ as well at home. Denies any change in urine output. No flank pain, hematuiera, dysuia. No SOB, chest pain, abd pain, N/V/D. Pt was given hyerkalemia cocktail x 3. K improved initially and then went back up to 6.7. 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 Travel: No Home Medications - Allergies Allergies/Adverse Reactions: Allergies Allergy/AdvReac Type Severity Reaction Status Date / Time No Known Allergies Allergy Verified 01/14/17 13:01 - Home Medications Home Medications: Ambulatory Orders Simvastatin [Zocor -] 40 mg PO HS 08/26/12 Enalapril Maleate [Vasotec -] 20 mg PO DAILY 12/06/12 Acetaminophen [Tylenol .Regular Strength -] 650 mg PO Q6H PRN #0 tablet Hydrochlorothiazide [Hctz -] 12.5 mg PO DAILY 01/14/17 Insulin NPH Human Isophane [Humulin N] 30 unit SQ AM 01/14/17 Insulin NPH Human Isophane [Humulin N] 30 unit SQ HS 01/14/17 Metformin HCl [Glucophage -] 1,000 mg PO BIDAC 01/14/17 Family Disease History - Family Disease History Family History: Unremarkable Review of Systems - Review of Systems Constitutional: reports: Loss of Appetite. denies: Chills, Fever, Lethargy, Night Sweats Eyes: reports: No Symptoms HENT: reports: No Symptoms Neck: reports: No Symptoms Cardiovascular: denies: Chest Pain, Edema, Palpitations, Shortness of Breath Respiratory: denies: Cough, Exercise Intolerance, Hemoptysis, Orthopnea, PND, Snoring, SOB, SOB on Exertion, Wheezing Gastrointestinal: denies: Abdominal Pain, Constipation, Melena, Nausea, Vomiting Genitourinary: denies: Burning, Discharge, Dysuria, Flank Pain Musculoskeletal: reports: Back Pain Neurological: reports: Weakness Nephrology Consult - Height Height: 5 ft 6 in - Weight Weight: 320 lb 6.4 oz - BMI Body Mass Index (BMI): 51.7 - Lab Results CBC,BMP: CBC, BMP 01/15/17 02:40 Anion Gap: Anion Gap Anion Gap 6 (8-16) L 01/15/17 02:40 - Imaging Chest X-ray: Report Reviewed Ultrasound: Report Reviewed - Physical Examination Vital Signs: Vital Signs Temperature 97.3 F L 01/15/17 06:19 Pulse Rate 106 H 01/15/17 06:19 Respiratory Rate 16 01/15/17 06:19 Blood Pressure 134/57 01/15/17 06:19 O2 Sat by Pulse Oximetry (%) 100 01/14/17 21:00 Constitutional: Yes: Well Nourished, No Distress, Calm Eyes: Yes: Conjunctiva Clear HENT: Yes: Atraumatic, Normocephalic Neck: Yes: Supple Cardiovascular: Yes: Regular Rate and Rhythm, S1, S2. No: JVD, Murmur, Rub Respiratory: Yes: Regular, CTA Bilaterally. No: On Nasal O2, Rales, Rhonchi, SOB, Wheezes Gastrointestinal: Yes: Normal Bowel Sounds, Soft, Abdomen, Obese. No: Tenderness Renal/: Yes: Day Present. No: Anuria, Bladder Distention, CVA Tenderness - Left, CVA Tenderness - Right Extremities: No: Cold, Cool, Cyanosis Edema: No Neurological: Yes: Alert, Oriented Problem List - Problems (1) MACY (acute kidney injury) Code(s): N17.9 - ACUTE KIDNEY FAILURE, UNSPECIFIED (2) HLD (hyperlipidemia) Code(s): E78.5 - HYPERLIPIDEMIA, UNSPECIFIED (3) HTN (hypertension) Code(s): I10 - ESSENTIAL (PRIMARY) HYPERTENSION (4) Hyperkalemia Code(s): E87.5 - HYPERKALEMIA (5) Abscess of leg Code(s): L02.419 - CUTANEOUS ABSCESS OF LIMB, UNSPECIFIED (6) Hyperglycemia due to type 2 diabetes mellitus Code(s): E11.65 - TYPE 2 DIABETES MELLITUS WITH HYPERGLYCEMIA Qualifiers: Diabetes mellitus paste thinner insulin use: unspecified paste thinner insulin use status Qualified Code(s): E11.65 - Type 2 diabetes mellitus with hyperglycemia Assessment/Plan 51 year old woman with PMhx of DM Type 2 (x 20 years), Hypertension, Obesity who presented with complaints of Lower extremity weakness x 2 days and found to have hyperkaemia with K of 8.2 and BUN/Cr of 46/1.6. #Acute Kidney Injury with Hyperkalemia Etiology appears to be acute interstitial nephritis due to Bactrim with hyperkalemia related to bactrim related inhibition of K secretion +/- ARB and acute renal insufficiency vs insulin deficiency/hyperglycemia K improved transiently given insulin shifting K intracellular but pt has not had a BM and likely has continued effects from Bactrim inhibiting k secretion s/p Insuin/D50/Kayexlate this am Repeat K and plasma K at 9am Increase IVF rate to 125cc per hour to increase distal delivery of Na and thus promoting K exchange Trend K Q6-8 hours throughout the day hold ARB Advised pt to avoid Bactrim in furture. #Proteinuria UPCR is ~2 but in setting of MACY repeat once renal function improves #Boil/Cellulitis off Bactrim management as per primary #Hypertension continue hydralazine goal BP < 140/90 #Dm type 2 continue insulin sliding scale Thank you Will follow Moiz Stovall DO
--- NOTE | 2017-01-15 08:13 | EKG ---
Test Reason : Blood Pressure : / mmHG Vent. Rate : 102 BPM Atrial Rate : 102 BPM P-R Int : 186 ms QRS Dur : 094 ms QT Int : 312 ms P-R-T Axes : 057 -27 043 degrees QTc Int : 406 ms SINUS TACHYCARDIA OTHERWISE NORMAL ECG WHEN COMPARED WITH ECG OF 06-DEC-2012 07:45, NONSPECIFIC T WAVE ABNORMALITY NO LONGER EVIDENT IN INFERIOR LEADS T WAVE AMPLITUDE HAS INCREASED IN ANTERIOR LEADS Confirmed by CHERYL JOSEPH, VALENTÍN ([id number]) on 01/15/2017 8:13:20 AM Referred By: Confirmed By:VALENTÍN LUNA MD
[2017-01-15] MEDS: SODIUM CHLORIDE 1,000 ML IV SCH (08:30)
[2017-01-15 09:44] LABS: ALBUMIN 3.3 g/dl (3.4-5.0); ANION GAP 6 (8-16); CALCIUM 8.9 mg/dL (8.5-10.1); CHOLESTEROL 133 mg/dL (50-200); CO2 22 mmol/L (21-32); CREATININE 1.4 mg/dL (0.55-1.02); GLUCOSE,RANDOM 253 mg/dL (74-106); LDL CHOLESTEROL (ONLY SJRH) 67 mg/dL (5-100); MAGNESIUM 1.9 mg/dL (1.8-2.4); PHOSPHOROUS 3.9 mg/dL (2.5-4.9); SGOT/AST 15 U/L (15-37); SGPT/ALT 28 U/L (12-78); TOT PROT 7.6 g/dl (6.4-8.2)
[2017-01-15 09:45] LABS: ALK PHOS 82 U/L (45-117); BILIRUBIN,TOTAL 0.2 mg/dL (0.2-1.0)
[2017-01-15] MEDS ORDERED: INSULIN (NOVOLOG) ASPART 100 UNITS/ML 10ML VIAL ONE ×3 (11:45→21:39)
--- NOTE | 2017-01-15 14:44 | PN ---
Physical Exam: SUBJECTIVE: Patient seen and examined. She has no acute complaints aside from the food being unpalatable. Denies weakness, chest pain, palpitation. Events: - AM EKG with peak T's - Kayexalate/insulin/glucose given 6am OBJECTIVE: Vital Signs Period Temp Pulse Resp BP Sys/Jeff Pulse Ox Last 24 Hr 97.3 F-98.6 F 98-112 16-21 131-172/57-78 98-100 PE Neuro: alert, awake, cn 2-12intact Pulm: CTAB CV: s1 s2 rrr no mrg Abd: obese, s nt nd + bs : labia majora incision +will Ext: warm, no le edema CBCD WBC 9.9 K/mm3 (4.0-10.0) 01/14/17 13:45 RBC 4.05 M/mm3 (3.60-5.2) 01/14/17 13:45 Hgb 11.4 GM/dL (10.7-15.3) D 01/14/17 13:45 Hct 35.3 % (32.4-45.2) 01/14/17 13:45 MCV 87.2 fl (80-96) 01/14/17 13:45 MCHC 32.4 g/dl (32.0-36.0) 01/14/17 13:45 RDW 14.1 % (11.6-15.6) 01/14/17 13:45 Plt Count 432 K/MM3 (134-434) 01/14/17 13:45 MPV 7.2 fl (7.5-11.1) L 01/14/17 13:45 CMP Sodium 135 mmol/L (136-145) L 01/15/17 08:45 Potassium 5.9 mmol/L (3.5-5.1) H 01/15/17 08:45 Chloride 107 mmol/L (98-107) 01/15/17 08:45 Carbon Dioxide 22 mmol/L (21-32) 01/15/17 08:45 Anion Gap 6 (8-16) L 01/15/17 08:45 BUN 41 mg/dL (7-18) H 01/15/17 08:45 Creatinine 1.4 mg/dL (0.55-1.02) H 01/15/17 08:45 Creat Clearance w eGFR 39.49 (>60) 01/15/17 08:45 Calcium 8.9 mg/dL (8.5-10.1) 01/15/17 08:45 Total Bilirubin 0.2 mg/dL (0.2-1.0) D 01/15/17 08:45 AST 15 U/L (15-37) 01/15/17 08:45 ALT 28 U/L (12-78) 01/15/17 08:45 Alkaline Phosphatase 82 U/L (45-117) 01/15/17 08:45 Total Protein 7.6 g/dl (6.4-8.2) 01/15/17 08:45 Albumin 3.3 g/dl (3.4-5.0) L 01/15/17 08:45 01/15/17 01/15/17 01/15/17 08:45 08:45 08:45 Plasma Potassium 5.7 H Hemoglobin A1c % 11.0 H Phosphorus 3.9 Magnesium 1.9 Triglycerides 181 H D Cholesterol 133 Total LDL Cholesterol 67 HDL Cholesterol 46 Active Medications Generic Name Dose Route Start Last Admin Trade Name Freq PRN Reason Stop Dose Admin Acetaminophen 650 mg 01/14/17 16:52 Tylenol - PO Q6H PRN FEVER OR PAIN Heparin Sodium (Porcine) 5,000 unit 01/14/17 22:00 01/15/17 13:11 Heparin - SQ 5,000 unit TID ELISEO Administration Hydralazine HCl 10 mg 01/14/17 17:00 01/15/17 13:11 Apresoline - PO 10 mg TID ELISEO Administration Sodium Chloride 1,000 mls @ 125 mls/hr 01/15/17 07:59 01/15/17 08:30 Normal Saline - IV 125 mls/hr ASDIR ELISEO Administration Insulin Aspart 1 vial 01/14/17 22:00 01/15/17 11:49 Novolog Vial Sliding Scale - SQ 10 units ACHS ELISEO Administration Protocol Lorazepam 0.5 mg 01/14/17 16:52 Ativan - PO BID PRN ANXIETY Assessment: 51 year old female admitted with lower extremity weakness found to have hyperkalemia, metabolic disarray Plan: 1. Hyperkalemia - Possible due to bactrim use and ARB - Received cocktail at 6am - Increase IVF 125cc/hr - Repeat BMP @1600 - Pt yet to have BM, s/p x2 doses 30mg kayexalate 2. Hyponatremia - Corrected sodium 137 3. Acute Interstitial nephritis/ Eosinophilia - Due to bactrim, now stopped - Urine eos pending - RICHARD will 4. HTN - Controlled - Continue Hydralazine 10mg TID 5. MACY/new onset ARF - IVF 125cc/hr - Trend cr - Hold ARB/HCTZ/do not restart bactrim - Renal US negative for obstruction - CXR negative 6. HLD - Elevated triglycerides - On statin - On Hold for MACY - Question if also could be contributing to her le weakness, however no myalgia reported 7. DM II, uncontrolled - Levemir 30units BID - ISS, BGM ACHS - Hgba1c 11 8. 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 - New Patient This patient is new to me today: No - Critical Care Critical Care patient: No
[2017-01-15 19:12] LABS: ANION GAP 5 (8-16); CALCIUM 8.5 mg/dL (8.5-10.1); CO2 23 mmol/L (21-32); CREATININE 1.4 mg/dL (0.55-1.02)
[2017-01-15 19:28] LABS: GLUCOSE,RANDOM 353 mg/dL (74-106)
[2017-01-15] MEDS ORDERED: SODIUM POLYSTYRENE SULFONATE 15 GM/60 ML BOTTLE PO ONE (19:38)
[2017-01-15] MEDS: ACETAMINOPHEN 325 MG TABLET (FP) PO PRN (21:56)
[2017-01-15 22:21] LABS: ANION GAP 5 (8-16); CALCIUM 8.8 mg/dL (8.5-10.1); CO2 23 mmol/L (21-32); CREATININE 1.4 mg/dL (0.55-1.02); GLUCOSE,RANDOM 241 mg/dL (74-106)
[2017-01-16] MEDS ORDERED: INSULIN (NOVOLOG) ASPART 100 UNITS/ML 10ML VIAL ONE ×6 (06:14→21:05)
[2017-01-16] MEDS: HEPARIN NA (PORCINE) 5,000 UNITS/ML 1ML VIAL SQ SCH ×3 (06:25→21:15)
[2017-01-16] MEDS: INSULIN SLIDING SCALE (NOVOLOG) 1 VIAL SQ SCH ×4 (06:25→21:15)
[2017-01-16] MEDS: hydrALAZINE HCL 10 MG TABLET PO SCH ×3 (06:27→21:15)
[2017-01-16] MEDS: SODIUM CHLORIDE 1,000 ML IV SCH (06:34)
[2017-01-16 07:39] LABS: ANION GAP 7 (8-16); CALCIUM 8.4 mg/dL (8.5-10.1); CO2 24 mmol/L (21-32); CREATININE 1.1 mg/dL (0.55-1.02)
[2017-01-16] MEDS: ACETAMINOPHEN 325 MG TABLET (FP) PO PRN (08:51)
[2017-01-16 09:47] LABS: GLUCOSE,RANDOM 359 mg/dL (74-106)
--- NOTE | 2017-01-16 11:02 | PN ---
Progress Note (short form) - Note Progress Note: Renal Follow up for Hyperkalemia and MACY Pt seen and examined at the bedside no acute complaints no CP, SOB, muscle weakness no N/V/D Vital Signs Temperature 97.5 F L 01/16/17 09:00 Pulse Rate 99 H 01/16/17 09:00 Respiratory Rate 20 01/16/17 09:00 Blood Pressure 154/77 01/16/17 09:00 O2 Sat by Pulse Oximetry (%) 97 01/16/17 09:00 Intake & Output 01/13/17 01/14/17 01/15/17 01/16/17 23:59 23:59 23:59 23:59 Intake Total 2925 875 Output Total 400 1050 Balance -400 1875 875 Weight 320 lb 6.4 oz 320 lb 6.4 oz Gen: NAD, awake and alert CVS: RRR, no M/R Lungs: CTA Abd: Obese, NT/ND Ext: No edema, clubbing or cyanosis CBC, BMP 01/14/17 13:45 01/16/17 06:30 Current Medications Acetaminophen (Tylenol -) 650 mg PO Q6H PRN PRN Reason: FEVER OR PAIN Last Admin: 01/16/17 08:51 Dose: 650 mg Heparin Sodium (Porcine) (Heparin -) 5,000 unit SQ TID [facility] Last Admin: 01/16/17 06:25 Dose: 5,000 unit Hydralazine HCl (Apresoline -) 10 mg PO TID [facility] Last Admin: 01/16/17 06:27 Dose: 10 mg Sodium Chloride (Normal Saline -) 1,000 mls @ 125 mls/hr IV ASDIR [facility] Last Admin: 01/16/17 06:34 Dose: 125 mls/hr Insulin Aspart (Novolog Vial Sliding Scale -) 1 vial SQ ACHS [facility] PRN Reason: Protocol Last Admin: 01/16/17 06:25 Dose: 10 units Lorazepam (Ativan -) 0.5 mg PO BID PRN PRN Reason: ANXIETY A/P 51 year old woman with PMhx of DM Type 2 (x 20 years), Hypertension, Obesity who presented with complaints of Lower extremity weakness x 2 days and found to have hyperkaemia with K of 8.2 and BUN/Cr of 46/1.6. #Acute Kidney Injury with Hyperkalemia Etiology appears to be acute interstitial nephritis due to Bactrim with hyperkalemia related to bactrim related inhibition of K secretion +/- ARB and acute renal insufficiency Renal function and potassium levels both improved today K is no longer showing a rebound which indicates that she is actually loosing K form the body as opposed to just shifting it intracellularly would continue IVF at lower rate today repeat K this afternoon if K remains > 5.3 can try dose of IV lasix to promote more renal excretion of K can consider possible discharge tomorrow of K and Cr remain stable with outpatient follow up Moiz Stovall DO Problem List - Problems (1) MACY (acute kidney injury) Code(s): N17.9 - ACUTE KIDNEY FAILURE, UNSPECIFIED (2) HLD (hyperlipidemia) Code(s): E78.5 - HYPERLIPIDEMIA, UNSPECIFIED (3) HTN (hypertension) Code(s): I10 - ESSENTIAL (PRIMARY) HYPERTENSION (4) Hyperkalemia Code(s): E87.5 - HYPERKALEMIA (5) Abscess of leg Code(s): L02.419 - CUTANEOUS ABSCESS OF LIMB, UNSPECIFIED (6) Hyperglycemia due to type 2 diabetes mellitus Code(s): E11.65 - TYPE 2 DIABETES MELLITUS WITH HYPERGLYCEMIA Qualifiers: Diabetes mellitus 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
--- NOTE | 2017-01-16 13:38 | EKG ---
Test Reason : Blood Pressure : / mmHG Vent. Rate : 099 BPM Atrial Rate : 099 BPM P-R Int : 164 ms QRS Dur : 088 ms QT Int : 336 ms P-R-T Axes : 047 -13 047 degrees QTc Int : 431 ms NORMAL SINUS RHYTHM NORMAL ECG WHEN COMPARED WITH ECG OF 14-JAN-2017 19:36, NO SIGNIFICANT CHANGE WAS FOUND Confirmed by CARL CONKLIN MD ([id number]) on 01/16/2017 1:38:25 PM Referred By: Yeison BERNARDO Confirmed By:CARL CONKLIN MD
--- NOTE | 2017-01-16 13:41 | EKG ---
Test Reason : Blood Pressure : / mmHG Vent. Rate : 089 BPM Atrial Rate : 089 BPM P-R Int : 178 ms QRS Dur : 088 ms QT Int : 344 ms P-R-T Axes : 017 -16 022 degrees QTc Int : 418 ms NORMAL SINUS RHYTHM NORMAL ECG WHEN COMPARED WITH ECG OF 14-JAN-2017 19:36, NO SIGNIFICANT CHANGE WAS FOUND Confirmed by CARL CONKLIN MD ([id number]) on 01/16/2017 1:40:32 PM Referred By: Confirmed By:CARL CONKLIN MD
--- NOTE | 2017-01-16 13:42 | EKG ---
Test Reason : Blood Pressure : / mmHG Vent. Rate : 094 BPM Atrial Rate : 094 BPM P-R Int : 164 ms QRS Dur : 084 ms QT Int : 322 ms P-R-T Axes : 028 -18 032 degrees QTc Int : 402 ms NORMAL SINUS RHYTHM NORMAL ECG WHEN COMPARED WITH ECG OF 14-JAN-2017 15:12, NO SIGNIFICANT CHANGE WAS FOUND Confirmed by CARL CONKLIN MD ([id number]) on 01/16/2017 1:42:28 PM Referred By: Confirmed By:CARL CONKLIN MD
[2017-01-16 14:36] LABS: ANION GAP 8 (8-16); CALCIUM 8.2 mg/dL (8.5-10.1); CO2 23 mmol/L (21-32); CREATININE 1.3 mg/dL (0.55-1.02)
[2017-01-16 14:39] LABS: GLUCOSE,RANDOM 366 mg/dL (74-106)
--- NOTE | 2017-01-16 17:03 | PN ---
Progress Note (short form) - Note Progress Note: SUBJECTIVE: The patient was seen and examined at the bedside, she states she would like to go home Current Medications Generic Name Dose Route Start Last Admin Trade Name Alma Rosa PRN Reason Stop Dose Admin Acetaminophen 650 mg 01/14/17 16:52 01/16/17 08:51 Tylenol - PO 650 mg Q6H PRN Administration FEVER OR PAIN Heparin Sodium (Porcine) 5,000 unit 01/14/17 22:00 01/16/17 14:55 Heparin - SQ 5,000 unit TID ELISEO Administration Hydralazine HCl 10 mg 01/14/17 17:00 01/16/17 14:55 Apresoline - PO 10 mg TID ELISEO Administration Sodium Chloride 1,000 mls @ 125 mls/hr 01/15/17 07:59 01/16/17 06:34 Normal Saline - IV 125 mls/hr ASDIR ELISEO Administration Insulin Aspart 1 vial 01/14/17 22:00 01/16/17 12:17 Novolog Vial Sliding Scale - SQ 8 units ACHS ELISEO Administration Protocol Lorazepam 0.5 mg 01/14/17 16:52 Ativan - PO BID PRN ANXIETY Non-Formulary Medication 30 unit 01/16/17 22:00 Insulin Nph Human Isophane [Humulin N] SQ HS ELISEO Non-Formulary Medication 30 unit 01/17/17 07:00 Insulin Nph Human Isophane [Humulin N] SQ AM ELISEO OBJECTIVE: Vital Signs Period Temp Pulse Resp BP Sys/Jeff Pulse Ox Last 24 Hr 97.5 F-99.2 F 87-100 18-20 145-166/74-85 97-98 Physical Exam: General: NAD, A&Ox3 Lungs: CTA bilaterally Heart: RRR, S1S2 Abd: Soft, non-tender, non-distended. Normoactive bowel sounds Ext: Warm, well-perfused. 2+ DP/PT bilaterally Neuro: CN 2-12 intact CBCD WBC 9.9 K/mm3 (4.0-10.0) 01/14/17 13:45 RBC 4.05 M/mm3 (3.60-5.2) 01/14/17 13:45 Hgb 11.4 GM/dL (10.7-15.3) D 01/14/17 13:45 Hct 35.3 % (32.4-45.2) 01/14/17 13:45 MCV 87.2 fl (80-96) 01/14/17 13:45 MCHC 32.4 g/dl (32.0-36.0) 01/14/17 13:45 RDW 14.1 % (11.6-15.6) 01/14/17 13:45 Plt Count 432 K/MM3 (134-434) 01/14/17 13:45 MPV 7.2 fl (7.5-11.1) L 01/14/17 13:45 CMP Sodium 137 mmol/L (136-145) 01/16/17 14:07 Potassium 5.0 mmol/L (3.5-5.1) 01/16/17 14:07 Chloride 106 mmol/L (98-107) 01/16/17 14:07 Carbon Dioxide 23 mmol/L (21-32) 01/16/17 14:07 Anion Gap 8 (8-16) 01/16/17 14:07 BUN 32 mg/dL (7-18) H 01/16/17 14:07 Creatinine 1.3 mg/dL (0.55-1.02) H 01/16/17 14:07 Creat Clearance w eGFR 39.49 (>60) 01/15/17 08:45 Random Glucose 366 mg/dL (74-106) H* 01/16/17 14:07 Calcium 8.2 mg/dL (8.5-10.1) L 01/16/17 14:07 Total Bilirubin 0.2 mg/dL (0.2-1.0) D 01/15/17 08:45 AST 15 U/L (15-37) 01/15/17 08:45 ALT 28 U/L (12-78) 01/15/17 08:45 Alkaline Phosphatase 82 U/L (45-117) 01/15/17 08:45 Total Protein 7.6 g/dl (6.4-8.2) 01/15/17 08:45 Albumin 3.3 g/dl (3.4-5.0) L 01/15/17 08:45 CARDIAC ENZYMES Creatine Kinase 115 IU/L (26-192) 01/14/17 15:30 Troponin I 0.02 ng/ml (0.00-0.05) 01/14/17 15:30 Assessment: This is a 51 year old female with PMHx of DM, HTN, hyperlipidemia, who presented to the ED with worsening lower extremity weakness. Plan: 1) Hyperkalemia: - Improving - Repeat K this afternoon 5 - D/c IVF as patient had HTN. Discussed with Dr. Stovall - Appreciate nephrology consult 2) Hyponatremia: - Resolved 3) MACY - Etiology appears to be acute interstitial nephritis due to Bactrim - Improving levels - Continue to monitor Cr - Hold ARB/Hctz 4) Cardiology: HTN - Discontinue IV fluids - Continue Hydralazine 10mg po tid - If remains elevated, may add Norvasc Hyperlipidemia - Hold statin for now as MACY - Question if could have been contributing to lower extremity weakness, however no myalgia reported 5) DM - Restart Levemir - BGM ACHS - ISS ACHS 6) F/E/N: - Renal, diabetic, sodium controlled diet - Monitor electrolytes as above 7) Prophylaxis: - OOB ambulating - Heparin 5,000u sq tid 8) Dispo: - Requires continued inpatient care CODE STATUS: FULL CODE Visit type - Emergency Visit Emergency Visit: Yes ED Registration Date: 01/14/17 Care time: The patient presented to the Emergency Department on the above date and was hospitalized for further evaluation of their emergent condition. - New Patient This patient is new to me today: Yes Date on this admission: 01/16/17 - Critical Care Critical Care patient: No
[2017-01-16] MEDS ORDERED: amLODIPine BESYLATE 5 MG TABLET (FP) PO ONE (18:39)
[2017-01-16] MEDS: INSULIN DETEMIR 100 UNITS/ML MDV SQ SCH (21:14)
[2017-01-16] MEDS ORDERED: INSULIN DETEMIR 100 UNITS/ML MDV SQ SCH (22:00)
[2017-01-17] MEDS: ACETAMINOPHEN 325 MG TABLET (FP) PO PRN (02:19)
[2017-01-17] MEDS ORDERED: INSULIN (NOVOLOG) ASPART 100 UNITS/ML 10ML VIAL ONE ×3 (06:25→12:28)
[2017-01-17] MEDS: HEPARIN NA (PORCINE) 5,000 UNITS/ML 1ML VIAL SQ SCH ×2 (06:31→13:08)
[2017-01-17] MEDS: hydrALAZINE HCL 10 MG TABLET PO SCH ×2 (06:31→13:08)
[2017-01-17] MEDS: INSULIN SLIDING SCALE (NOVOLOG) 1 VIAL SQ SCH ×2 (06:31→12:34)
[2017-01-17] MEDS: INSULIN DETEMIR 100 UNITS/ML MDV SQ SCH (06:32)
[2017-01-17] MEDS ORDERED: INSULIN DETEMIR 100 UNITS/ML MDV SQ SCH (07:00)
[2017-01-17 07:51] LABS: ALBUMIN 3.1 g/dl (3.4-5.0); ANION GAP 6 (8-16); CALCIUM 8.6 mg/dL (8.5-10.1); CO2 24 mmol/L (21-32); GLUCOSE,RANDOM 254 mg/dL (74-106)
[2017-01-17 07:56] LABS: ALK PHOS 80 U/L (45-117); BILIRUBIN,TOTAL 0.3 mg/dL (0.2-1.0); SGOT/AST 11 U/L (15-37); SGPT/ALT 28 U/L (12-78); TOT PROT 7.2 g/dl (6.4-8.2)
[2017-01-17] MEDS ORDERED: amLODIPine BESYLATE 5 MG TABLET (FP) PO SCH (10:00)
--- NOTE | 2017-01-17 10:08 | DS ---
Physical Examination Vital Signs: Vital Signs Temperature 98.1 F 01/17/17 06:00 Pulse Rate 87 01/17/17 06:00 Respiratory Rate 20 01/17/17 06:00 Blood Pressure 154/73 01/17/17 06:00 O2 Sat by Pulse Oximetry (%) 98 01/16/17 20:50 Labs: CBC, BMP 01/17/17 06:40 Discharge Summary Reason For Visit: MACY HYPERKALEMIA Current Active Problems MACY (acute kidney injury) (Acute) EKG, abnormal (Acute) HLD (hyperlipidemia) (Acute) HTN (hypertension) (Acute) Hyperkalemia (Acute) Hospital Course: Discussed with Dr. Stovall, recommend discharge and follow-up within 1 week Condition: Improved - Instructions Diet, Activity, Other Instructions: Please return to the ED with new, persistent, or worsening symptoms. Please follow-up with providers as indicated. STOP taking Metformin, Hctz, and Enalapril Novolog sliding scale: BGM <150, 0 units. 151-200, 2 units. 201-250, 4 units. 251-300, 6 units. 301-350, 8 units. 351-400, 10 units. Greater than 400, 12 units and call md Referrals: Anjelica Ramirez [Primary Care Provider] - 1 Week Moiz Stovall MD [Staff Physician] - (Please follow-up with Dr. Stovall within 3 -5 days) Disposition: HOME - Home Medications Comprehensive Discharge Medication List: Ambulatory Orders Simvastatin [Zocor -] 40 mg PO HS 08/26/12 Acetaminophen [Tylenol .Regular Strength -] 650 mg PO Q6H PRN #0 tablet Insulin NPH Human Isophane [Humulin N] 30 unit SQ AM 01/14/17 Insulin NPH Human Isophane [Humulin N] 30 unit SQ HS 01/14/17 Amlodipine Besylate [Norvasc -] 5 mg PO DAILY #30 tablet 01/17/17 Hydralazine HCl [Apresoline -] 10 mg PO TID #90 tablet 01/17/17 Insulin Sliding Scale [Novolog Vial Sliding Scale -] 1 vial SQ ACHS #1 ml
[2017-01-17 11:45] VITALS: BP 149/77; PULSE 96; TEMP 98.5
--- NOTE | 2017-01-17 12:54 | PN ---
Progress Note (short form) - Note Progress Note: Renal Follow up for Hyperkalemia and MACY Pt seen and examined at the bedside no complaints wants to go home making a good amount of urine Vital Signs Temperature 98.5 F 01/17/17 10:00 Pulse Rate 96 H 01/17/17 10:00 Respiratory Rate 20 01/17/17 10:00 Blood Pressure 149/77 01/17/17 10:00 O2 Sat by Pulse Oximetry (%) 98 01/17/17 09:00 Intake & Output 01/14/17 01/15/17 01/16/17 01/17/17 23:59 23:59 23:59 23:59 Intake Total 2925 1125 Output Total 400 1050 Balance -400 1875 1125 Weight 320 lb 6.4 oz 320 lb 6.4 oz Gen: NAD, awake and alert CVS: RRR, no M/R Lungs: CTA Abd: Obese, NT/ND Ext: No edema, clubbing or cyanosis CBC, BMP 01/14/17 13:45 01/17/17 06:40 Laboratory Tests 01/17/17 06:40 Calcium 8.6 Current Medications Acetaminophen (Tylenol -) 650 mg PO Q6H PRN PRN Reason: FEVER OR PAIN Last Admin: 01/17/17 02:19 Dose: 650 mg Amlodipine Besylate (Norvasc -) 5 mg PO DAILY [facility] Last Admin: 01/17/17 10:42 Dose: 5 mg Heparin Sodium (Porcine) (Heparin -) 5,000 unit SQ TID [facility] Last Admin: 01/17/17 06:31 Dose: 5,000 unit Hydralazine HCl (Apresoline -) 10 mg PO TID [facility] Last Admin: 01/17/17 06:31 Dose: 10 mg Insulin Aspart (Novolog Vial Sliding Scale -) 1 vial SQ ACHS [facility] PRN Reason: Protocol Last Admin: 01/17/17 12:34 Dose: 8 units Insulin Detemir (Levemir Vial) 30 units SQ BID@07, [facility] Last Admin: 01/17/17 06:32 Dose: 30 units Lorazepam (Ativan -) 0.5 mg PO BID PRN PRN Reason: ANXIETY A/P 51 year old woman with PMhx of DM Type 2 (x 20 years), Hypertension, Obesity who presented with complaints of Lower extremity weakness x 2 days and found to have hyperkaemia with K of 8.2 and BUN/Cr of 46/1.6. #Acute Kidney Injury with Hyperkalemia Etiology appears to be acute interstitial nephritis due to Bactrim with hyperkalemia related to bactrim related inhibition of K secretion +/- ARB and acute renal insufficiency Renal function and potassium both are improved pt is stable for discharge today would maintain off ARB and HCTZ for now Will need office follow up in 1 week Avoid any further argelia of Bactrium can resume regular diet advised importance of good oral intake of water #Hypertension Continue Amlodipne and Hydralazine at home if K and renal function are stable on office follow up can resume ARB and HCTZ Thank you for allowing us to take part in the care of this patient Moiz Stovall DO Problem List - Problems (1) MACY (acute kidney injury) Code(s): N17.9 - ACUTE KIDNEY FAILURE, UNSPECIFIED (2) HLD (hyperlipidemia) Code(s): E78.5 - HYPERLIPIDEMIA, UNSPECIFIED (3) HTN (hypertension) Code(s): I10 - ESSENTIAL (PRIMARY) HYPERTENSION (4) Hyperkalemia Code(s): E87.5 - HYPERKALEMIA (5) Abscess of leg Code(s): L02.419 - CUTANEOUS ABSCESS OF LIMB, UNSPECIFIED (6) Hyperglycemia due to type 2 diabetes mellitus Code(s): E11.65 - TYPE 2 DIABETES MELLITUS WITH HYPERGLYCEMIA Qualifiers: Diabetes mellitus 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
== END 2017-01-17 14:03 | disposition home or self-care (01) | DRG 683 ==
LOC: JER 12:53 → JERBED 15:21 → J4S 20:45
PROVIDERS: ADMIT Internal Medicine; ATTEND Registered Nurse
DX: N17.9 Acute kidney failure, unspecified (principal); Z68.43 Body mass index [BMI] 50.0-59.9, adult; E87.1 Hypo-osmolality and hyponatremia; L02.419 Cutaneous abscess of limb, unspecified; E87.5 Hyperkalemia; E11.65 Type 2 diabetes mellitus with hyperglycemia; I10 Essential (primary) hypertension; E78.5 Hyperlipidemia, unspecified; E66.01 Morbid (severe) obesity due to excess calories; D72.1 Eosinophilia; Z79.84 Long term (current) use of oral hypoglycemic drugs; Z79.4 Long term (current) use of insulin
CPT/HCPCS: 36415; 71010-TC; 76775-TC; 76856-TC; 80048; 80053; 80061; 81003; 81015; 82436; 82570; 83036; 83721; 83735; 83880; 83930; 83935; 84100; 84132; 84133; 84156; 84300; 84484; 84540; 85025; 87081; 87205; 93005; 93010; 94640; 99285-25; J1644

== ENCOUNTER 2020-05-19 11:48 | Inpatient (IN) | payer OTHER ==
[2020-05-19 13:53] LABS: BASO % 1.2 % (0-2.0); HEMOGLOBIN 10.3 GM/dL (10.7-15.3); LYMPH % 14.6 % (8-40); MCH 28.8 pg (25.7-33.7); MCHC 32.2 g/dl (32.0-36.0); MEAN CELL VOLUME 89.4 fl (80-96); MEAN PLT VOLUME 7.8 fl (7.5-11.1); MONO % 5.3 % (3.8-10.2); NEUT % 76.9 % (42.8-82.8); PLATELET COUNT 403 K/MM3 (134-434); RBC 3.58 M/mm3 (3.60-5.2); RDW 14.3 % (11.6-15.6); WHITE BLOOD COUNT 11.4 K/mm3 (4.0-10.0)
[2020-05-19 14:01] LABS: INR 1.04 (0.83-1.09); PROTHROMBIN TIME (PATIENT) 12.6 SEC (9.7-13.0)
[2020-05-19 14:10] LABS: ALBUMIN 3.5 g/dl (3.4-5.0); BLOOD UREA NITROGEN 34.2 mg/dL (7-18); CALCIUM 8.9 mg/dL (8.5-10.1); POTASSIUM 5.1 mmol/L (3.5-5.1)
[2020-05-19 14:14] LABS: CREATININE 1.5 mg/dL (0.55-1.3)
[2020-05-19 14:17] LABS: BILIRUBIN,TOTAL 0.9 mg/dL (0.2-1); TOT PROT 7.9 g/dl (6.4-8.2)
[2020-05-19 17:25] LABS: EPI CELLS 36 /uL (0-25.1); HYALINE CASTS 2 /uL (0-3.1); PH,URINE 5.5 (5.0-8.0); URINE APPEARANCE CLEAR; URINE BACTERIA 54 /uL (0-1359); URINE BILIRUBIN NEGATIVE (NEGATIVE); URINE COLOR YELLOW; URINE GLUCOSE (UA) NEGATIVE (NEGATIVE); URINE KETONE NEGATIVE (NEGATIVE); URINE LEUK ESTERASE NEGATIVE (NEGATIVE); URINE NITRITE NEGATIVE (NEGATIVE); URINE PROTEIN 3+ (NEGATIVE); URINE RBC 22 /uL (0-23.9); URINE UROBILINOGEN 0.2 mg/dL (0.2-1.0); URINE WBC 10 /uL (0-25.8)
[2020-05-19] MEDS ORDERED: ATORVASTATIN CA 20 MG TABLET (FP) ONE (21:34)
[2020-05-19] MEDS ORDERED: PATIENT'S OWN MEDICATION (NON-FORMULARY) (Simvastatin 10 MG Tablet) PO SCH (22:00)
[2020-05-19] MEDS: ATORVASTATIN CA 20 MG TABLET (FP) PO SCH (22:28)
[2020-05-19] MEDS: INSULIN SLIDING SCALE (NOVOLOG) 1 VIAL SQ SCH (22:36)
[2020-05-19] MEDS: hydrALAZINE HCL 10 MG TABLET PO SCH (22:36)
[2020-05-20] MEDS ORDERED: ACETAMINOPHEN 325 MG TABLET (FP) ONE ×2 (00:41→09:35)
[2020-05-20] MEDS: ACETAMINOPHEN 325 MG TABLET (FP) PO PRN ×3 (00:44→21:58)
[2020-05-20] MEDS: hydrALAZINE HCL 10 MG TABLET PO SCH ×3 (06:44→21:05)
[2020-05-20] MEDS ORDERED: INSULIN (NOVOLOG MIX 70/30) 100 UNITS/ML MDV SQ ONE (07:45)
[2020-05-20] MEDS: INSULIN (NOVOLOG MIX 70/30) 100 UNITS/ML MDV SQ SCH ×2 (07:53→17:00)
[2020-05-20] MEDS: INSULIN SLIDING SCALE (NOVOLOG) 1 VIAL SQ SCH ×4 (07:54→21:10)
[2020-05-20 12:21] VITALS: BMI 53.1
[2020-05-20] MEDS ORDERED: PNEUMOC 13-VAL CONJ-DIP CRM/PF 0.5 ML DISP.SYRIN IM ONE (12:23)
[2020-05-20] MEDS ORDERED: PNEUMOCOCCAL 23 VACCINE 0.5 ML VIAL IM ONE (13:00)
[2020-05-20] MEDS ORDERED: FLU VACCINE (FLULAVAL) PF 60 MCG/0.5 ML SYRINGE 2020-2021 IM ONE (13:00)
[2020-05-20] MEDS: ATORVASTATIN CA 20 MG TABLET (FP) PO SCH (21:05)
[2020-05-21] MEDS: hydrALAZINE HCL 10 MG TABLET PO SCH ×3 (05:54→21:24)
[2020-05-21] MEDS: INSULIN (NOVOLOG MIX 70/30) 100 UNITS/ML MDV SQ SCH ×2 (06:07→16:59)
[2020-05-21] MEDS: INSULIN SLIDING SCALE (NOVOLOG) 1 VIAL SQ SCH ×4 (06:07→21:24)
[2020-05-21 07:57] LABS: BASO % 0.8 % (0-2.0); EOS % 3.8 % (0-4.5); HEMATOCRIT 26.7 % (32.4-45.2); HEMOGLOBIN 8.5 GM/dL (10.7-15.3); LYMPH % 26.3 % (8-40); MCH 28.8 pg (25.7-33.7); MCHC 31.9 g/dl (32.0-36.0); MEAN CELL VOLUME 90.3 fl (80-96); MONO % 8.1 % (3.8-10.2); PLATELET COUNT 320 K/MM3 (134-434); RBC 2.96 M/mm3 (3.60-5.2); RDW 14.4 % (11.6-15.6); WHITE BLOOD COUNT 9.5 K/mm3 (4.0-10.0)
[2020-05-21 08:01] LABS: POTASSIUM 5.6 mmol/L (3.5-5.1)
[2020-05-21 08:04] LABS: ALBUMIN 2.6 g/dl (3.4-5.0); BLOOD UREA NITROGEN 41.4 mg/dL (7-18)
[2020-05-21 08:06] LABS: CREATININE 1.8 mg/dL (0.55-1.3)
[2020-05-21 08:08] LABS: BILIRUBIN,TOTAL 0.2 mg/dL (0.2-1)
[2020-05-21 08:10] LABS: TOT PROT 6.1 g/dl (6.4-8.2)
[2020-05-21] MEDS ORDERED: ONDANSETRON 4 MG/2 ML VIAL IVPUSH PRN ×2 (09:54→11:38)
[2020-05-21] MEDS ORDERED: oxyCODONE HCL 5 MG TABLET PO PRN ×2 (09:54→11:38)
[2020-05-21] MEDS ORDERED: LACTATED RINGERS SOLUTION 1,000 ML IV SCH (10:00)
[2020-05-21] MEDS ORDERED: MIDAZOLAM HCL 2 MG/2 ML SINGLE DOSE VIAL ONE (10:16)
[2020-05-21] MEDS ORDERED: PROPOFOL 20 ML ONE (10:16)
[2020-05-21] MEDS ORDERED: ceFAZolin SODIUM 1 GM VIAL ONE ×2 (10:31)
[2020-05-21] MEDS ORDERED: ceFAZolin SODIUM 1 GM VIAL IVPB ONE (10:34)
[2020-05-21] MEDS ORDERED: LIDOCAINE HCL 1%, 10 MG/ML (20ML VIAL) PNB ONE ×2 (10:43)
[2020-05-21] MEDS: LACTATED RINGERS SOLUTION 1,000 ML IV SCH ×2 (12:09→13:18)
[2020-05-21] MEDS: ACETAMINOPHEN 325 MG TABLET (FP) PO PRN (13:18)
[2020-05-21] MEDS ORDERED: FLU VACCINE (FLULAVAL) PF 60 MCG/0.5 ML SYRINGE 2020-2021 IM ONE ×2 (14:42→15:45)
[2020-05-21] MEDS ORDERED: PNEUMOC 13-VAL CONJ-DIP CRM/PF 0.5 ML DISP.SYRIN IM ONE (14:42)
[2020-05-21] MEDS ORDERED: PNEUMOCOCCAL 23 VACCINE 0.5 ML VIAL IM ONE (15:45)
[2020-05-21] MEDS ORDERED: ATORVASTATIN CA 20 MG TABLET (FP) PO SCH (22:00)
[2020-05-22] MEDS: ACETAMINOPHEN 325 MG TABLET (FP) PO PRN (01:03)
[2020-05-22] MEDS: hydrALAZINE HCL 10 MG TABLET PO SCH ×2 (05:46→14:21)
[2020-05-22] MEDS: INSULIN SLIDING SCALE (NOVOLOG) 1 VIAL SQ SCH ×2 (06:24→13:01)
[2020-05-22] MEDS: INSULIN (NOVOLOG MIX 70/30) 100 UNITS/ML MDV SQ SCH (06:25)
[2020-05-22] MEDS ORDERED: INSULIN (NOVOLOG) ASPART 100 UNITS/ML 10ML VIAL ONE ×2 (06:29→12:48)
[2020-05-22] MEDS ORDERED: INSULIN (LEVEMIR) 100 UNITS/ML UNITS SQ ONE (06:29)
[2020-05-22] MEDS: LACTATED RINGERS SOLUTION 1,000 ML IV SCH (13:01)
[2020-05-22 15:54] VITALS: BP 149/77; PULSE 92; TEMP 98.1
== END 2020-05-22 16:52 | disposition home or self-care (01) | DRG 197 ==
LOC: JER 11:48 → JERBED 16:37 → J7W 05-20 11:24
PROVIDERS: ADMIT Family Medicine; ATTEND Internal Medicine
PROC: B40FYZZ Plain Radiography of Right Lower Extremity Arteries using Other Contrast (ICD-10-PCS; 2020-05-21)
PROC: B40DYZZ Plain Radiography of Aorta and Bilateral Lower Extremity Arteries using Other Contrast (ICD-10-PCS; principal; 2020-05-21 16:00)
DX: E11.51 Type 2 diabetes mellitus with diabetic peripheral angiopathy without gangrene (principal); E11.621 Type 2 diabetes mellitus with foot ulcer; L97.418 Non-pressure chronic ulcer of right heel and midfoot with other specified severity; I10 Essential (primary) hypertension; E78.5 Hyperlipidemia, unspecified; E66.01 Morbid (severe) obesity due to excess calories; Z68.43 Body mass index [BMI] 50.0-59.9, adult; D64.9 Anemia, unspecified; H33.22 Serous retinal detachment, left eye; E87.5 Hyperkalemia; I11.0 Hypertensive heart disease with heart failure; I50.30 Unspecified diastolic (congestive) heart failure
CPT/HCPCS: 36415; 71045-TC-FY; 76000-TC-FY; 80053; 81003; 82550; 82962; 84484; 85025; 85610; 86850; 86900; 86901; 87081; 90732; 93005; 93010; 93306-TC; 94760; 99285-25; C9803; G0008; G0009; Q2036; U0003

== ENCOUNTER 2020-08-14 15:48 | Emergency (ER) | payer OTHER ==
[2020-08-14 16:24] VITALS: TEMP 97.2; BMI 519.4
[2020-08-14] MEDS ORDERED: hydrALAZINE HCL 10 MG TABLET PO ONE (16:58)
[2020-08-14 18:48] VITALS: BP 173/86; PULSE 96
== END 2020-08-14 19:00 | disposition home or self-care (01) ==
LOC: JER 15:48
DX: I10 Essential (primary) hypertension (principal)
CPT/HCPCS: 82962; 99283-25; G0277; G0463-25

== ENCOUNTER 2021-03-05 13:13 | Inpatient (IN) | payer OTHER ==
[2021-03-05 15:29] LABS: BASO % 0.8 % (0-2.0); HEMOGLOBIN 8.8 GM/dL (10.7-15.3); LYMPH % 11.8 % (8-40); MCH 28.3 pg (25.7-33.7); MCHC 32.5 g/dl (32.0-36.0); MEAN CELL VOLUME 87.1 fl (80-96); MEAN PLT VOLUME 7.6 fl (7.5-11.1); MONO % 6.2 % (3.8-10.2); NEUT % 79.2 % (42.8-82.8); PLATELET COUNT 345 10^3/uL (134-434); RDW 13.8 % (11.6-15.6); WHITE BLOOD COUNT 13.2 K/mm3 (4.0-10.0)
[2021-03-05 15:37] LABS: PROTHROMBIN TIME (PATIENT) 12.3 SEC (9.7-13.0)
[2021-03-05 15:40] LABS: ACTIVATED PTT 32.4 SECONDS (25.2-36.5)
[2021-03-05 15:53] LABS: CHLORIDE 113 mmol/L (98-107); SODIUM 137 mmol/L (136-145)
[2021-03-05 15:56] LABS: BLOOD UREA NITROGEN 53.6 mg/dL (7-18); CO2 20 mmol/L (21-32)
[2021-03-05 15:57] LABS: GLUCOSE,RANDOM 105 mg/dL (74-106); MAGNESIUM 2.4 mg/dL (1.8-2.4)
[2021-03-05 15:59] LABS: SGPT/ALT 26 U/L (13-61)
[2021-03-05 16:00] LABS: PHOSPHOROUS 4.1 mg/dL (2.5-4.9); SGOT/AST 37 U/L (15-37)
[2021-03-05 16:01] LABS: BILIRUBIN,TOTAL 0.5 mg/dL (0.2-1); TOT PROT 7.9 g/dl (6.4-8.2)
[2021-03-05 16:02] LABS: ALK PHOS 95 U/L (45-117)
[2021-03-05 16:06] LABS: N-TERMINAL BNP 131.2 pg/ml (5-125)
[2021-03-05 17:33] LABS: ANION GAP 4 MMOL/L (8-16)
[2021-03-05 18:45] LABS: BLOOD UREA NITROGEN 51.3 mg/dL (7-18); CALCIUM 8.4 mg/dL (8.5-10.1)
[2021-03-05 18:49] LABS: CREATININE 1.9 mg/dL (0.55-1.3)
[2021-03-05] MEDS ORDERED: INSULIN REGULAR HUMAN 100 UNITS/ML *VIAL IVPUSH ONE (18:56)
[2021-03-05] MEDS ORDERED: ALBUTEROL SO4 0.083% IH SOL 2.5 MG/3 ML VIAL.NEB. NEB ONE ×2 (18:57→19:13)
[2021-03-05] MEDS ORDERED: DEXTROSE 50%-WATER - 25 GM/50 ML VIAL IVPUSH ONE (18:57)
[2021-03-05] MEDS ORDERED: FUROSEMIDE 40 MG/4 ML INJECTABLE VIAL IVPUSH ONE (18:58)
[2021-03-05] MEDS ORDERED: DEXTROSE 50%-WATER - 25 GM/50 ML VIAL ONE (19:13)
[2021-03-05] MEDS ORDERED: DEXTROSE 50%-WATER 25 GM/50 ML DISP.SYRIN ONE (19:14)
[2021-03-05] MEDS ORDERED: FUROSEMIDE 40 MG/4 ML INJECTABLE VIAL ONE (19:14)
[2021-03-05 23:18] LABS: BLOOD UREA NITROGEN 48.5 mg/dL (7-18); CALCIUM 8.3 mg/dL (8.5-10.1)
[2021-03-06] MEDS: HEPARIN NA (PORCINE) 5,000 UNITS/ML 1ML VIAL SQ SCH ×2 (01:18→05:14)
[2021-03-06] MEDS: amLODIPine BESYLATE 5 MG TABLET (FP) PO SCH ×2 (01:18→09:28)
[2021-03-06] MEDS: ATORVASTATIN CA 20 MG TABLET (FP) PO SCH ×2 (01:19→22:36)
[2021-03-06 02:36] LABS: EPI CELLS 6 /uL (0-25.1); HYALINE CASTS 1 /uL (0-3.1); URINE APPEARANCE CLEAR; URINE BACTERIA 68 /uL (0-1359); URINE BILIRUBIN NEGATIVE (NEGATIVE); URINE COLOR YELLOW; URINE GLUCOSE (UA) NEGATIVE (NEGATIVE); URINE KETONE NEGATIVE (NEGATIVE); URINE LEUK ESTERASE NEGATIVE (NEGATIVE); URINE NITRITE NEGATIVE (NEGATIVE); URINE PROTEIN 2+ (NEGATIVE); URINE RBC 7 /uL (0-23.9); URINE UROBILINOGEN 0.2 mg/dL (0.2-1.0); URINE WBC 9 /uL (0-25.8)
[2021-03-06 03:11] LABS: RETICULOCYTES 0.95 % (0.5-1.5)
[2021-03-06 09:32] LABS: EOS % 3.3 % (0-4.5); HEMOGLOBIN 8.6 GM/dL (10.7-15.3); MCH 28.8 pg (25.7-33.7); MCHC 32.9 g/dl (32.0-36.0); MEAN CELL VOLUME 87.6 fl (80-96); MEAN PLT VOLUME 7.8 fl (7.5-11.1); MONO % 6.3 % (3.8-10.2); NEUT % 71.4 % (42.8-82.8); PLATELET COUNT 363 10^3/uL (134-434); RBC 2.97 M/mm3 (3.60-5.2); RDW 13.6 % (11.6-15.6)
[2021-03-06 10:12] LABS: BLOOD UREA NITROGEN 49.9 mg/dL (7-18); CALCIUM 8.4 mg/dL (8.5-10.1)
[2021-03-06 10:13] LABS: MAGNESIUM 2.3 mg/dL (1.8-2.4)
[2021-03-06 10:15] LABS: BILIRUBIN,TOTAL 0.3 mg/dL (0.2-1); PHOSPHOROUS 4.6 mg/dL (2.5-4.9)
[2021-03-06 10:17] LABS: TOT PROT 7.3 g/dl (6.4-8.2)
[2021-03-06 10:19] LABS: IRON SERUM 34 ug/dL (50-175)
[2021-03-06 10:20] LABS: TOTAL IRON BINDING CAPACITY 203 ug/dL (250-450)
[2021-03-06] MEDS ORDERED: SODIUM ZIRCONIUM CYCLOSILICATE (LOKELMA) 5 GM PACKET PO ONE (10:30)
[2021-03-06 15:58] LABS: CALCIUM 7.8 mg/dL (8.5-10.1)
[2021-03-06 15:59] LABS: BLOOD UREA NITROGEN 50.2 mg/dL (7-18)
[2021-03-06 16:02] LABS: CREATININE 2.2 mg/dL (0.55-1.3)
[2021-03-06] MEDS: SODIUM ZIRCONIUM CYCLOSILICATE (LOKELMA) 5 GM PACKET PO SCH (22:36)
[2021-03-07] MEDS ORDERED: INSULIN (NOVOLOG) ASPART 100 UNITS/ML 10ML VIAL SQ ONE (00:14)
[2021-03-07] MEDS: INSULIN SLIDING SCALE (NOVOLOG) 1 VIAL SQ SCH ×2 (06:26→12:15)
[2021-03-07 08:56] LABS: BASO % 1.1 % (0-2.0); EOS % 4.2 % (0-4.5); HEMATOCRIT 25.7 % (32.4-45.2); HEMOGLOBIN 8.5 GM/dL (10.7-15.3); LYMPH % 19.7 % (8-40); MCH 29.1 pg (25.7-33.7); MCHC 32.9 g/dl (32.0-36.0); MEAN CELL VOLUME 88.4 fl (80-96); MEAN PLT VOLUME 7.7 fl (7.5-11.1); MONO % 7.5 % (3.8-10.2); NEUT % 67.5 % (42.8-82.8); PLATELET COUNT 335 10^3/uL (134-434); RBC 2.91 M/mm3 (3.60-5.2); RDW 13.6 % (11.6-15.6); WHITE BLOOD COUNT 9.7 K/mm3 (4.0-10.0)
[2021-03-07 09:21] LABS: CALCIUM 8.1 mg/dL (8.5-10.1)
[2021-03-07 09:22] LABS: ALBUMIN 2.8 g/dl (3.4-5.0); BLOOD UREA NITROGEN 46.4 mg/dL (7-18); MAGNESIUM 2.5 mg/dL (1.8-2.4)
[2021-03-07 09:25] LABS: CREATININE 2.1 mg/dL (0.55-1.3)
[2021-03-07 09:26] LABS: BILIRUBIN,TOTAL 0.3 mg/dL (0.2-1); TOT PROT 6.9 g/dl (6.4-8.2)
[2021-03-07] MEDS: amLODIPine BESYLATE 5 MG TABLET (FP) PO SCH (09:59)
[2021-03-07] MEDS ORDERED: ASPIRIN COATED 81 MG TABLET.EC PO SCH (10:30)
[2021-03-07] MEDS ORDERED: INSULIN SLIDING SCALE (NOVOLOG) 1 VIAL SQ SCH (11:00)
[2021-03-07] MEDS: SODIUM ZIRCONIUM CYCLOSILICATE (LOKELMA) 5 GM PACKET PO SCH (12:14)
[2021-03-07 13:51] VITALS: BMI 54.7
[2021-03-07] MEDS ORDERED: SODIUM BICARBONATE 650 MG TABLET PO SCH (14:00)
[2021-03-07 14:36] LABS: HIV INTERPRETATION NEGATIVE (NEGATIVE)
[2021-03-07 15:14] VITALS: BP 142/70; PULSE 91; TEMP 98
[2021-03-08] MEDS ORDERED: SODIUM ZIRCONIUM CYCLOSILICATE (LOKELMA) 5 GM PACKET PO SCH (10:00)
[2021-03-09] MEDS ORDERED: SODIUM ZIRCONIUM CYCLOSILICATE (LOKELMA) 5 GM PACKET PO SCH (10:00)
== END 2021-03-07 15:15 | disposition home or self-care (01) | DRG 425 ==
LOC: JER 13:13 → JERBED 19:08 → J5S 23:58
PROVIDERS: ADMIT Internal Medicine; ATTEND Nurse Practitioner Acute Care
DX: E87.5 Hyperkalemia (principal); E11.22 Type 2 diabetes mellitus with diabetic chronic kidney disease; N17.9 Acute kidney failure, unspecified; E11.649 Type 2 diabetes mellitus with hypoglycemia without coma; E66.01 Morbid (severe) obesity due to excess calories; L97.419 Non-pressure chronic ulcer of right heel and midfoot with unspecified severity; L97.909 Non-pressure chronic ulcer of unspecified part of unspecified lower leg with unspecified severity; Z68.43 Body mass index [BMI] 50.0-59.9, adult; D72.829 Elevated white blood cell count, unspecified; E78.5 Hyperlipidemia, unspecified; I12.9 Hypertensive chronic kidney disease with stage 1 through stage 4 chronic kidney disease, or unspecified chronic kidney disease; N18.9 Chronic kidney disease, unspecified; F41.8 Other specified anxiety disorders
CPT/HCPCS: 36415; 71045-TC-FY; 80048; 80053; 81003; 82272; 82550; 82553; 82607; 82728; 82962; 83540; 83550; 83605; 83615; 83735; 83880; 84100; 84443; 84484; 85025; 85045; 85610; 85730; 86803; 87389; 93005; 93010; 99285-25; C9803; J1644; U0003; U0005

== ENCOUNTER 2021-07-23 14:55 | Inpatient (IN) | payer OTHER ==
[2021-07-23 15:05] VITALS: BMI 40.3
[2021-07-23] MEDS ORDERED: VANCOMYCIN/WATER 1,250 MG/250 ML BAG IVPB ONE (16:56)
[2021-07-23 17:50] LABS: BASO % 0.8 % (0-2.0); EOS % 1.4 % (0-4.5); HEMATOCRIT 28.4 % (32.4-45.2); HEMOGLOBIN 9.2 GM/dL (10.7-15.3); LYMPH % 11.8 % (8-40); MCHC 32.3 g/dl (32.0-36.0); MEAN CELL VOLUME 83.4 fl (80-96); MEAN PLT VOLUME 7.3 fl (7.5-11.1); MONO % 7.9 % (3.8-10.2); NEUT % 78.1 % (42.8-82.8); PLATELET COUNT 527 10^3/uL (134-434); RDW 16.5 % (11.6-15.6); WHITE BLOOD COUNT 13.5 K/mm3 (4.0-10.0)
[2021-07-23 17:59] LABS: INR 1.08 (0.83-1.09); PROTHROMBIN TIME (PATIENT) 12.4 SEC (9.7-13.0)
[2021-07-23 18:16] LABS: CHLORIDE 108 mmol/L (98-107); SODIUM 139 mmol/L (136-145)
[2021-07-23 18:19] LABS: ALBUMIN 3.3 g/dl (3.4-5.0); ANION GAP 7 MMOL/L (8-16); BLOOD UREA NITROGEN 61.5 mg/dL (7-18); CO2 24 mmol/L (21-32)
[2021-07-23 18:22] LABS: SGOT/AST 14 U/L (15-37); SGPT/ALT 19 U/L (13-61)
[2021-07-23 18:23] LABS: TOT PROT 8.3 g/dl (6.4-8.2)
[2021-07-23 18:24] LABS: ALK PHOS 94 U/L (45-117); BILIRUBIN,TOTAL 0.2 mg/dL (0.2-1)
[2021-07-23 18:36] LABS: GLUCOSE,RANDOM 40 mg/dL (74-106)
[2021-07-24] MEDS ORDERED: PIPERACILLIN/TAZOB 2.25 GM 2.25 GM/50 ML BAG IVPB ONE (00:35)
[2021-07-24] MEDS ORDERED: DEXTROSE 50%-WATER - 25 GM/50 ML VIAL IVPUSH ONE (01:07)
[2021-07-24] MEDS: PIPERACILLIN/TAZOB 2.25 GM 2.25 GM in DEXTROSE 5%-WATER - 50 ML IVPB SCH ×4 (01:59→20:03)
[2021-07-24] MEDS ORDERED: PIPERACILLIN/TAZOBACTAM 2.25 GM VIAL IVPB ONE (02:00)
[2021-07-24] MEDS ORDERED: DEXTROSE 5%-WATER - 50 ML IVPB ONE ×2 (02:01→17:55)
[2021-07-24] MEDS ORDERED: DEXTROSE 4 GM TAB.CHEW PO ONE ×3 (02:10→03:10)
[2021-07-24] MEDS ORDERED: DEXTROSE 10%-WATER 500 ML INFUS.BAG IV ONE (02:15)
[2021-07-24] MEDS: ACETAMINOPHEN 325 MG TABLET (FP) PO PRN ×3 (03:03→22:20)
[2021-07-24] MEDS ORDERED: DEXTROSE 4 GM TAB.CHEW PO PRN ×2 (04:40→19:36)
[2021-07-24] MEDS ORDERED: VANCOMYCIN PREMIX 1.5 GM 1,500 MG/300 ML BAG IVPB SCH (06:00)
[2021-07-24] MEDS: HEPARIN NA (PORCINE) 5,000 UNITS/ML 1ML VIAL SQ SCH ×3 (06:03→22:19)
[2021-07-24] MEDS: INSULIN SLIDING SCALE (NOVOLOG) 1 VIAL SQ SCH ×4 (06:03→22:19)
[2021-07-24 08:15] LABS: HEMATOCRIT 22.1 % (32.4-45.2); HEMOGLOBIN 7.2 GM/dL (10.7-15.3); MCH 27.3 pg (25.7-33.7); MCHC 32.5 g/dl (32.0-36.0); MEAN CELL VOLUME 84.1 fl (80-96); MEAN PLT VOLUME 7.3 fl (7.5-11.1); PLATELET COUNT 415 10^3/uL (134-434); RBC 2.63 M/mm3 (3.60-5.2); RDW 16.5 % (11.6-15.6); WHITE BLOOD COUNT 9.8 K/mm3 (4.0-10.0)
[2021-07-24 08:20] LABS: CHOLESTEROL 111 mg/dL (50-200)
[2021-07-24 08:21] LABS: LDL CHOLESTEROL (ONLY SJRH) 56 mg/dL (5-100); TRIGLYCERIDES 86 mg/dL (0-150)
[2021-07-24 08:22] LABS: HDL CHOLESTEROL 36 mg/dL (40-60)
[2021-07-24 09:37] LABS: ALBUMIN 2.5 g/dl (3.4-5.0); BILIRUBIN,TOTAL 0.2 mg/dL (0.2-1); BLOOD UREA NITROGEN 55.8 mg/dL (7-18); CALCIUM 8.3 mg/dL (8.5-10.1); MAGNESIUM 2.5 mg/dL (1.8-2.4); PHOSPHOROUS 4.8 mg/dL (2.5-4.9); TOT PROT 6.6 g/dl (6.4-8.2)
[2021-07-24] MEDS ORDERED: ASPIRIN COATED 81 MG TABLET.EC PO SCH (10:00)
[2021-07-24] MEDS ORDERED: CHOLECALCIFEROL (VIT D3) 1,000 UNIT (25 MCG) TABLET PO SCH (10:00)
[2021-07-24] MEDS ORDERED: amLODIPine BESYLATE 5 MG TABLET (FP) PO SCH (10:00)
[2021-07-24] MEDS ORDERED: DULoxetine HCL 30 MG CAPSULE.DR PO SCH (10:00)
[2021-07-24 16:31] LABS: EPI CELLS 17 /uL (0-25.1); HYALINE CASTS 0 /uL (0-3.1); URINE APPEARANCE CLOUDY; URINE BACTERIA 106 /uL (0-1359); URINE BILIRUBIN NEGATIVE (NEGATIVE); URINE COLOR YELLOW; URINE GLUCOSE (UA) TRACE (NEGATIVE); URINE KETONE NEGATIVE (NEGATIVE); URINE LEUK ESTERASE 2+ (NEGATIVE); URINE NITRITE NEGATIVE (NEGATIVE); URINE PROTEIN 2+ (NEGATIVE); URINE RBC 32 /uL (0-23.9); URINE UROBILINOGEN 0.2 mg/dL (0.2-1.0); URINE WBC 1173 /uL (0-25.8)
[2021-07-24] MEDS ORDERED: PIPERACILLIN/TAZOBACTAM 3.375 GM VIAL IVPB ONE (17:55)
[2021-07-24] MEDS ORDERED: VANCOMYCIN 1 GRAM (PRE-DOCKED) 1,000 MG/250 ML BAG IVPB SCH (18:00)
[2021-07-24] MEDS ORDERED: PIPERACILLIN/TAZOB 3.375 GM 3.375 GM in DEXTROSE 5%-WATER - 50 ML IVPB SCH (18:00)
[2021-07-24] MEDS: VANCOMYCIN HCL 1,500 MG in DEXTROSE 5%-WATER - 250 ML IVPB SCH ×2 (20:03→20:04)
[2021-07-24] MEDS ORDERED: ATORVASTATIN CA 10 MG TABLET (FP) PO SCH (22:00)
[2021-07-24] MEDS: ATORVASTATIN CA 10 MG TABLET (FP) PO SCH (22:19)
[2021-07-25] MEDS ORDERED: DEXTROSE 5%-WATER - 50 ML IVPB ONE ×3 (00:42→16:29)
[2021-07-25] MEDS ORDERED: PIPERACILLIN/TAZOBACTAM 3.375 GM VIAL IVPB ONE ×3 (00:42→16:29)
[2021-07-25] MEDS: PIPERACILLIN/TAZOB 3.375 GM 3.375 GM in DEXTROSE 5%-WATER - 50 ML IVPB SCH ×3 (01:17→17:13)
[2021-07-25] MEDS ORDERED: VANCOMYCIN 1 GRAM (PRE-DOCKED) 1,000 MG/250 ML BAG IVPB SCH (06:00)
[2021-07-25] MEDS: HEPARIN NA (PORCINE) 5,000 UNITS/ML 1ML VIAL SQ SCH ×3 (06:10→21:46)
[2021-07-25] MEDS: INSULIN SLIDING SCALE (NOVOLOG) 1 VIAL SQ SCH ×4 (06:19→22:13)
[2021-07-25 08:18] LABS: EOS % 6.1 % (0-4.5); HEMATOCRIT 22.7 % (32.4-45.2); HEMOGLOBIN 7.2 GM/dL (10.7-15.3); LYMPH % 15.9 % (8-40); MCHC 31.7 g/dl (32.0-36.0); MEAN CELL VOLUME 85.3 fl (80-96); MEAN PLT VOLUME 7.2 fl (7.5-11.1); MONO % 8.2 % (3.8-10.2); NEUT % 68.8 % (42.8-82.8); PLATELET COUNT 394 10^3/uL (134-434); RBC 2.67 M/mm3 (3.60-5.2); RDW 16.6 % (11.6-15.6); WHITE BLOOD COUNT 9.7 K/mm3 (4.0-10.0)
[2021-07-25 08:42] LABS: CALCIUM 8.3 mg/dL (8.5-10.1)
[2021-07-25 08:43] LABS: MAGNESIUM 2.6 mg/dL (1.8-2.4)
[2021-07-25 08:44] LABS: ALBUMIN 2.6 g/dl (3.4-5.0); BLOOD UREA NITROGEN 58.1 mg/dL (7-18)
[2021-07-25 08:46] LABS: CREATININE 2.3 mg/dL (0.55-1.3)
[2021-07-25 08:47] LABS: BILIRUBIN,TOTAL 0.2 mg/dL (0.2-1); TOT PROT 6.7 g/dl (6.4-8.2)
[2021-07-25] MEDS: amLODIPine BESYLATE 5 MG TABLET (FP) PO SCH (09:17)
[2021-07-25] MEDS: DULoxetine HCL 30 MG CAPSULE.DR PO SCH (09:17)
[2021-07-25] MEDS: ASPIRIN COATED 81 MG TABLET.EC PO SCH (09:18)
[2021-07-25] MEDS: CHOLECALCIFEROL (VIT D3) 1,000 UNIT (25 MCG) TABLET PO SCH (09:18)
[2021-07-25] MEDS: FERROUS SO4 325 MG TABLET (FP) PO SCH (16:44)
[2021-07-25] MEDS: SILVER SULFADIAZINE 1% TOP CREAM 50 GM JAR TP SCH ×2 (19:21→21:46)
[2021-07-25] MEDS: DOCUSATE SODIUM 100 MG CAPSULE (FP) PO SCH (21:46)
[2021-07-25] MEDS: ATORVASTATIN CA 10 MG TABLET (FP) PO SCH (21:46)
[2021-07-25] MEDS: ACETAMINOPHEN 325 MG TABLET (FP) PO PRN (21:46)
[2021-07-26] MEDS ORDERED: PIPERACILLIN/TAZOBACTAM 3.375 GM VIAL IVPB ONE ×2 (00:31→09:25)
[2021-07-26] MEDS ORDERED: DEXTROSE 5%-WATER - 50 ML IVPB ONE ×2 (00:31→09:26)
[2021-07-26] MEDS: PIPERACILLIN/TAZOB 3.375 GM 3.375 GM in DEXTROSE 5%-WATER - 50 ML IVPB SCH ×3 (01:19→18:41)
[2021-07-26] MEDS: HEPARIN NA (PORCINE) 5,000 UNITS/ML 1ML VIAL SQ SCH ×3 (06:19→22:02)
[2021-07-26] MEDS: INSULIN SLIDING SCALE (NOVOLOG) 1 VIAL SQ SCH ×4 (06:20→22:04)
[2021-07-26 08:04] LABS: BASO % 1.1 % (0-2.0); EOS % 6.9 % (0-4.5); HEMATOCRIT 22.6 % (32.4-45.2); HEMOGLOBIN 7.4 GM/dL (10.7-15.3); LYMPH % 17.1 % (8-40); MCH 27.4 pg (25.7-33.7); MCHC 32.8 g/dl (32.0-36.0); MEAN CELL VOLUME 83.6 fl (80-96); MONO % 8.4 % (3.8-10.2); NEUT % 66.5 % (42.8-82.8); PLATELET COUNT 407 10^3/uL (134-434); RBC 2.71 M/mm3 (3.60-5.2); RDW 16.1 % (11.6-15.6); WHITE BLOOD COUNT 8.5 K/mm3 (4.0-10.0)
[2021-07-26 08:26] LABS: CALCIUM 7.9 mg/dL (8.5-10.1)
[2021-07-26 08:27] LABS: ALBUMIN 2.6 g/dl (3.4-5.0); BLOOD UREA NITROGEN 54.9 mg/dL (7-18); MAGNESIUM 2.6 mg/dL (1.8-2.4)
[2021-07-26 08:29] LABS: CREATININE 2.3 mg/dL (0.55-1.3)
[2021-07-26 08:33] LABS: TOT PROT 6.8 g/dl (6.4-8.2)
[2021-07-26] MEDS: CHOLECALCIFEROL (VIT D3) 1,000 UNIT (25 MCG) TABLET PO SCH (09:50)
[2021-07-26] MEDS: FOLIC ACID 1 MG TABLET (FP) PO SCH (09:50)
[2021-07-26] MEDS: ASPIRIN COATED 81 MG TABLET.EC PO SCH (09:50)
[2021-07-26] MEDS: FERROUS SO4 325 MG TABLET (FP) PO SCH ×4 (09:51→18:38)
[2021-07-26] MEDS: DULoxetine HCL 30 MG CAPSULE.DR PO SCH (09:51)
[2021-07-26] MEDS: amLODIPine BESYLATE 5 MG TABLET (FP) PO SCH (09:51)
[2021-07-26] MEDS: SILVER SULFADIAZINE 1% TOP CREAM 50 GM JAR TP SCH ×2 (10:00→22:03)
[2021-07-26] MEDS: SODIUM ZIRCONIUM CYCLOSILICATE (LOKELMA) 5 GM PACKET PO SCH (15:11)
[2021-07-26] MEDS: DOCUSATE SODIUM 100 MG CAPSULE (FP) PO SCH (22:02)
[2021-07-26] MEDS: ATORVASTATIN CA 10 MG TABLET (FP) PO SCH (22:02)
[2021-07-27] MEDS ORDERED: PIPERACILLIN/TAZOBACTAM 3.375 GM VIAL IVPB ONE ×2 (01:18→09:13)
[2021-07-27] MEDS ORDERED: DEXTROSE 5%-WATER - 50 ML IVPB ONE ×3 (01:19→17:41)
[2021-07-27] MEDS: PIPERACILLIN/TAZOB 3.375 GM 3.375 GM in DEXTROSE 5%-WATER - 50 ML IVPB SCH ×2 (01:50→09:25)
[2021-07-27] MEDS: HEPARIN NA (PORCINE) 5,000 UNITS/ML 1ML VIAL SQ SCH ×3 (06:23→21:33)
[2021-07-27] MEDS: INSULIN SLIDING SCALE (NOVOLOG) 1 VIAL SQ SCH ×4 (06:23→21:33)
[2021-07-27 07:59] LABS: BASO % 0.9 % (0-2.0); EOS % 4.8 % (0-4.5); HEMATOCRIT 22.5 % (32.4-45.2); HEMOGLOBIN 7.3 GM/dL (10.7-15.3); LYMPH % 16.4 % (8-40); MCH 27.2 pg (25.7-33.7); MCHC 32.5 g/dl (32.0-36.0); MEAN CELL VOLUME 83.7 fl (80-96); MEAN PLT VOLUME 7.2 fl (7.5-11.1); MONO % 7.3 % (3.8-10.2); NEUT % 70.6 % (42.8-82.8); PLATELET COUNT 404 10^3/uL (134-434); RBC 2.69 M/mm3 (3.60-5.2); RDW 16.1 % (11.6-15.6)
[2021-07-27 08:02] LABS: ALBUMIN 2.6 g/dl (3.4-5.0); BLOOD UREA NITROGEN 52.3 mg/dL (7-18); CALCIUM 8.2 mg/dL (8.5-10.1); MAGNESIUM 2.6 mg/dL (1.8-2.4)
[2021-07-27 08:06] LABS: PHOSPHOROUS 4.6 mg/dL (2.5-4.9)
[2021-07-27 08:07] LABS: BILIRUBIN,TOTAL 0.4 mg/dL (0.2-1)
[2021-07-27 08:08] LABS: CREATININE 2.2 mg/dL (0.55-1.3)
[2021-07-27 08:09] LABS: TOT PROT 6.9 g/dl (6.4-8.2)
[2021-07-27] MEDS: FERROUS SO4 325 MG TABLET (FP) PO SCH ×3 (08:13→16:55)
[2021-07-27] MEDS: ACETAMINOPHEN 325 MG TABLET (FP) PO PRN (08:54)
[2021-07-27] MEDS: amLODIPine BESYLATE 5 MG TABLET (FP) PO SCH (09:25)
[2021-07-27] MEDS: SODIUM ZIRCONIUM CYCLOSILICATE (LOKELMA) 5 GM PACKET PO SCH (09:25)
[2021-07-27] MEDS: DULoxetine HCL 30 MG CAPSULE.DR PO SCH (09:25)
[2021-07-27] MEDS: FOLIC ACID 1 MG TABLET (FP) PO SCH (09:25)
[2021-07-27] MEDS: CHOLECALCIFEROL (VIT D3) 1,000 UNIT (25 MCG) TABLET PO SCH (09:26)
[2021-07-27] MEDS: ASPIRIN COATED 81 MG TABLET.EC PO SCH (09:26)
[2021-07-27] MEDS: SILVER SULFADIAZINE 1% TOP CREAM 50 GM JAR TP SCH ×2 (10:41→23:45)
[2021-07-27] MEDS ORDERED: PIPERACILLIN/TAZOBACTAM 2.25 GM VIAL IVPB ONE (17:41)
[2021-07-27] MEDS: PIPERACILLIN/TAZOB 2.25 GM 2.25 GM in DEXTROSE 5%-WATER - 50 ML IVPB SCH (17:55)
[2021-07-27] MEDS: ATORVASTATIN CA 10 MG TABLET (FP) PO SCH (21:33)
[2021-07-27] MEDS: DOCUSATE SODIUM 100 MG CAPSULE (FP) PO SCH (21:33)
[2021-07-28] MEDS: ACETAMINOPHEN 325 MG TABLET (FP) PO PRN ×2 (00:14→22:37)
[2021-07-28] MEDS ORDERED: DEXTROSE 5%-WATER - 50 ML IVPB ONE ×4 (00:48→16:44)
[2021-07-28] MEDS ORDERED: PIPERACILLIN/TAZOBACTAM 2.25 GM VIAL IVPB ONE ×4 (00:48→16:43)
[2021-07-28] MEDS: PIPERACILLIN/TAZOB 2.25 GM 2.25 GM in DEXTROSE 5%-WATER - 50 ML IVPB SCH ×3 (02:18→18:19)
[2021-07-28] MEDS: INSULIN SLIDING SCALE (NOVOLOG) 1 VIAL SQ SCH ×4 (06:53→22:43)
[2021-07-28] MEDS: HEPARIN NA (PORCINE) 5,000 UNITS/ML 1ML VIAL SQ SCH ×3 (06:54→22:37)
[2021-07-28 07:50] LABS: EOS % 5.2 % (0-4.5); HEMATOCRIT 22.4 % (32.4-45.2); HEMOGLOBIN 7.5 GM/dL (10.7-15.3); LYMPH % 15.8 % (8-40); MCH 27.8 pg (25.7-33.7); MCHC 33.5 g/dl (32.0-36.0); MONO % 7.6 % (3.8-10.2); NEUT % 70.4 % (42.8-82.8); PLATELET COUNT 390 10^3/uL (134-434); RBC 2.69 M/mm3 (3.60-5.2); RDW 16.4 % (11.6-15.6)
[2021-07-28 08:23] LABS: ALBUMIN 2.8 g/dl (3.4-5.0); BLOOD UREA NITROGEN 47.4 mg/dL (7-18); CALCIUM 8.4 mg/dL (8.5-10.1); MAGNESIUM 2.6 mg/dL (1.8-2.4)
[2021-07-28 08:26] LABS: CREATININE 2.1 mg/dL (0.55-1.3)
[2021-07-28 08:27] LABS: BILIRUBIN,TOTAL 0.6 mg/dL (0.2-1); TOT PROT 7.1 g/dl (6.4-8.2)
[2021-07-28] MEDS: amLODIPine BESYLATE 5 MG TABLET (FP) PO SCH (11:02)
[2021-07-28] MEDS: ASPIRIN COATED 81 MG TABLET.EC PO SCH (11:02)
[2021-07-28] MEDS: DULoxetine HCL 30 MG CAPSULE.DR PO SCH (11:03)
[2021-07-28] MEDS: FERROUS SO4 325 MG TABLET (FP) PO SCH ×3 (11:03→16:53)
[2021-07-28] MEDS: CHOLECALCIFEROL (VIT D3) 1,000 UNIT (25 MCG) TABLET PO SCH (11:03)
[2021-07-28] MEDS: FOLIC ACID 1 MG TABLET (FP) PO SCH (11:03)
[2021-07-28] MEDS: SODIUM ZIRCONIUM CYCLOSILICATE (LOKELMA) 5 GM PACKET PO SCH (11:04)
[2021-07-28] MEDS: SILVER SULFADIAZINE 1% TOP CREAM 50 GM JAR TP SCH ×2 (11:04→23:00)
[2021-07-28] MEDS: ATORVASTATIN CA 10 MG TABLET (FP) PO SCH (22:37)
[2021-07-28] MEDS: DOCUSATE SODIUM 100 MG CAPSULE (FP) PO SCH (22:37)
[2021-07-28] MEDS: INSULIN (LEVEMIR) 100 UNITS/ML UNITS SQ SCH (22:42)
[2021-07-29] MEDS ORDERED: DEXTROSE 5%-WATER - 50 ML IVPB ONE ×3 (02:08→16:42)
[2021-07-29] MEDS ORDERED: PIPERACILLIN/TAZOBACTAM 2.25 GM VIAL IVPB ONE ×3 (02:08→16:42)
[2021-07-29] MEDS: PIPERACILLIN/TAZOB 2.25 GM 2.25 GM in DEXTROSE 5%-WATER - 50 ML IVPB SCH ×3 (02:33→17:16)
[2021-07-29] MEDS: INSULIN SLIDING SCALE (NOVOLOG) 1 VIAL SQ SCH ×4 (06:00→21:51)
[2021-07-29] MEDS: HEPARIN NA (PORCINE) 5,000 UNITS/ML 1ML VIAL SQ SCH ×3 (06:00→21:50)
[2021-07-29] MEDS: FERROUS SO4 325 MG TABLET (FP) PO SCH ×3 (07:48→17:16)
[2021-07-29] MEDS: DULoxetine HCL 30 MG CAPSULE.DR PO SCH (09:02)
[2021-07-29] MEDS: SODIUM ZIRCONIUM CYCLOSILICATE (LOKELMA) 5 GM PACKET PO SCH (09:03)
[2021-07-29] MEDS: SILVER SULFADIAZINE 1% TOP CREAM 50 GM JAR TP SCH ×2 (09:03→21:55)
[2021-07-29] MEDS: amLODIPine BESYLATE 5 MG TABLET (FP) PO SCH (09:03)
[2021-07-29] MEDS: ASPIRIN COATED 81 MG TABLET.EC PO SCH (09:03)
[2021-07-29] MEDS: FOLIC ACID 1 MG TABLET (FP) PO SCH (09:03)
[2021-07-29] MEDS: CHOLECALCIFEROL (VIT D3) 1,000 UNIT (25 MCG) TABLET PO SCH (09:03)
[2021-07-29] MEDS: ACETAMINOPHEN 325 MG TABLET (FP) PO PRN ×2 (09:14→21:50)
[2021-07-29] MEDS: DOCUSATE SODIUM 100 MG CAPSULE (FP) PO SCH (21:50)
[2021-07-29] MEDS: INSULIN (LEVEMIR) 100 UNITS/ML UNITS SQ SCH (21:50)
[2021-07-29] MEDS: ATORVASTATIN CA 10 MG TABLET (FP) PO SCH (21:50)
[2021-07-30] MEDS: INSULIN SLIDING SCALE (NOVOLOG) 1 VIAL SQ SCH ×2 (06:05→11:25)
[2021-07-30] MEDS: HEPARIN NA (PORCINE) 5,000 UNITS/ML 1ML VIAL SQ SCH ×2 (06:05→14:18)
[2021-07-30] MEDS: FERROUS SO4 325 MG TABLET (FP) PO SCH ×2 (07:46→11:25)
[2021-07-30] MEDS ORDERED: AMOX TR/POT CLAV 875MG/125MG TABLETS (FP) PO SCH (08:00)
[2021-07-30 08:50] VITALS: BP 134/60; PULSE 80; TEMP 98
[2021-07-30] MEDS: FOLIC ACID 1 MG TABLET (FP) PO SCH (09:01)
[2021-07-30] MEDS: CHOLECALCIFEROL (VIT D3) 1,000 UNIT (25 MCG) TABLET PO SCH (09:01)
[2021-07-30] MEDS: DULoxetine HCL 30 MG CAPSULE.DR PO SCH (09:01)
[2021-07-30] MEDS: amLODIPine BESYLATE 5 MG TABLET (FP) PO SCH (09:01)
[2021-07-30] MEDS: ASPIRIN COATED 81 MG TABLET.EC PO SCH (09:01)
[2021-07-30] MEDS: ACETAMINOPHEN 325 MG TABLET (FP) PO PRN (09:01)
[2021-07-30] MEDS: SODIUM ZIRCONIUM CYCLOSILICATE (LOKELMA) 5 GM PACKET PO SCH (09:39)
[2021-07-30] MEDS: SILVER SULFADIAZINE 1% TOP CREAM 50 GM JAR TP SCH (09:39)
[2021-07-30 12:31] LABS: EOS % 4.5 % (0-4.5); HEMATOCRIT 27.3 % (32.4-45.2); HEMOGLOBIN 9.1 GM/dL (10.7-15.3); LYMPH % 17.1 % (8-40); MCH 27.7 pg (25.7-33.7); MCHC 33.3 g/dl (32.0-36.0); MEAN CELL VOLUME 83.2 fl (80-96); MONO % 5.6 % (3.8-10.2); NEUT % 71.8 % (42.8-82.8); PLATELET COUNT 462 10^3/uL (134-434); RBC 3.28 M/mm3 (3.60-5.2); RDW 16.9 % (11.6-15.6); WHITE BLOOD COUNT 9.8 K/mm3 (4.0-10.0)
[2021-07-30 12:59] LABS: BLOOD UREA NITROGEN 39.6 mg/dL (7-18); CALCIUM 8.6 mg/dL (8.5-10.1)
[2021-07-30 13:00] LABS: MAGNESIUM 2.3 mg/dL (1.8-2.4)
[2021-07-30 13:04] LABS: BILIRUBIN,TOTAL 0.4 mg/dL (0.2-1)
== END 2021-07-30 18:10 | DRG 384 ==
LOC: JER 14:55 → JERBED 16:56 → J4S 07-24 02:55
PROVIDERS: ADMIT Internal Medicine; ATTEND Nurse Practitioner Family
DX: S91.301A Unspecified open wound, right foot, initial encounter (principal); I24.8 Other forms of acute ischemic heart disease; N17.9 Acute kidney failure, unspecified; E11.22 Type 2 diabetes mellitus with diabetic chronic kidney disease; E11.622 Type 2 diabetes mellitus with other skin ulcer; E66.01 Morbid (severe) obesity due to excess calories; S91.302A Unspecified open wound, left foot, initial encounter; Z68.41 Body mass index [BMI] 40.0-44.9, adult; D50.9 Iron deficiency anemia, unspecified; D72.829 Elevated white blood cell count, unspecified; E78.5 Hyperlipidemia, unspecified; F41.8 Other specified anxiety disorders; I12.9 Hypertensive chronic kidney disease with stage 1 through stage 4 chronic kidney disease, or unspecified chronic kidney disease; N18.9 Chronic kidney disease, unspecified; E87.5 Hyperkalemia; E11.40 Type 2 diabetes mellitus with diabetic neuropathy, unspecified; X58.XXXA Exposure to other specified factors, initial encounter; Y93.9 Activity, unspecified; Y92.89 Other specified places as the place of occurrence of the external cause; Y99.9 Unspecified external cause status
CPT/HCPCS: 36415; 71045-TC-FY; 73630-TC-LT; 73719-LT; 80053; 80061; 81003; 82272; 82550; 82607; 82728; 82746; 82962; 83036; 83540; 83550; 83735; 84100; 84443; 84484; 85025; 85027; 85045; 85610; 85651; 86140; 86850; 86900; 86901; 87040; 87070; 87186; 87205; 93005; 93010; 97116-GP; 99285-25; C9803-CS; G0463-25; G0480; J1644; U0003; U0005